=== PATIENT | female | born 1965 | race American Indian/Alaskan Native ===

== ENCOUNTER 2017-11-30 01:26 | Emergency (ER) | payer MEDICAID ==
[2017-11-30 01:29] VITALS: BMI 43.2
[2017-11-30 01:38] VITALS: RESP 18; TEMP 97.7
[2017-11-30] MEDS ORDERED: Metoprolol 1 mg/ml Inj IVP STA ×2 (01:42→02:46)
--- NOTE | 2017-11-30 01:51 | ED PDOC ---
Arrival/HPI - General Chief Complaint: GI Problem Time Seen by Provider: 11/30/17 01:33 Historian: Patient - History of Present Illness Narrative History of Present Illness (Text): 11/30/17 01:50 A 52 year old female, whose past medical history includes hypertension normally takes Lisinopril, was brought in by EMS to the emergency department for nausea, vomiting and high blood pressure. Patient reports nosebleed when she woke up this morning. Patient saw PMD and was prescribed Norvasc for high blood pressure , at 20:00 yesterday, reports she hasn't taken medication yet. Reports nausea and vomiting and elevated blood pressure at home, reported to the emergency department for further evaluation. Patient denies any other complaints at this time. Symptom Onset: Sudden Symptom Course: Unchanged Activities at Onset: Rest Context: Home Past Medical History - Provider Review Nursing Documentation Reviewed: Yes - Infectious Disease Hx of Infectious Diseases: None - Tetanus Immunization Tetanus Immunization: Unknown - Cardiac Hx Hypertension: Yes - Psychiatric Hx Anxiety: Yes Hx Depression: No Hx Emotional Abuse: No Hx Physical Abuse: No Hx Substance Use: No - Suicidal Assessment Feels Threatened In Home Enviroment: No Family/Social History - Physician Review Nursing Documentation Reviewed: Yes Family/Social History: No Known Family HX Smoking Status: Heavy Smoker > 10 Cigarettes Daily Hx Alcohol Use: No Hx Substance Use: No Allergies/Home Meds Allergies/Adverse Reactions: Allergies No Known Allergies Allergy (Verified 12/29/15 11:40) Home Medications: Home Meds Medication Instructions Recorded Confirmed Lisinopril [Zestril] 10 mg PO DAILY 12/29/15 11/30/17 Review of Systems - Physician Review All systems were reviewed & negative as marked: Yes - Review of Systems ENT: Epistaxis Gastrointestinal: Nausea, Vomiting Physical Exam Vital Signs Reviewed: Yes Vital Signs Temp Pulse Resp BP Pulse Ox 11/30/17 03:09 65 18 145/93 H 100 11/30/17 02:58 68 157/94 H 11/30/17 02:07 78 158/102 H 11/30/17 01:35 97.7 F 78 18 152/64 H 99 Temperature: Afebrile Blood Pressure: Hypertensive Pulse: Regular Respiratory Rate: Normal Appearance: Positive for: Well-Appearing, Non-Toxic, Comfortable Pain Distress: None Mental Status: Positive for: Alert and Oriented X 3 - Systems Exam Head: Present: Atraumatic, Normocephalic Pupils: Present: PERRL Extroacular Muscles: Present: EOMI Conjunctiva: Present: Normal Mouth: Present: Moist Mucous Membranes Neck: Present: Normal Range of Motion Respiratory/Chest: Present: Clear to Auscultation, Good Air Exchange. No: Respiratory Distress, Accessory Muscle Use Cardiovascular: Present: Regular Rate and Rhythm, Normal S1, S2. No: Murmurs Abdomen: Present: Normal Bowel Sounds. No: Tenderness, Distention, Peritoneal Signs Back: Present: Normal Inspection Upper Extremity: Present: Normal Inspection. No: Cyanosis, Edema Lower Extremity: Present: Normal Inspection. No: Edema Neurological: Present: GCS=15, CN II-XII Intact, Speech Normal Skin: Present: Warm, Dry, Normal Color. No: Rashes Psychiatric: Present: Alert, Oriented x 3, Normal Insight, Normal Concentration Medical Decision Making ED Course and Treatment: 11/30/17 01:48 Impression: A 52 year old female with nausea, vomiting, and high blood pressure. Plan: -- CT head -- chest xray -- labs -- Urinalysis -- Lopressor, Zofran -- Reassess and disposition Progress Notes: 11/30/17 02:40 EKG: Ordered, reviewed, and independently interpreted the EKG. Rate : 63 BPM Rhythm : NSR Interpretation : Normal intervals, normal axis 11/30/17 02:42 Chest xray: No active disease, as read by me. CT Head Without Intravenous Contrast FINDINGS: Brain: No intracranial hemorrhage. No definite mass. No definite edema. Ventricles: No hydrocephalus. Bones/joints: No acute fracture. Soft tissues: Unremarkable. Sinuses: No acute sinusitis. Mastoid air cells: No mastoid effusion. Orbits: Unremarkable as visualized. IMPRESSION: 1. No definite acute intracranial abnormality. Dictated and Authenticated by: Ronny Palma MD 11/30/2017 2:48 AM Eastern Time ([place] & [place]) 11/30/17 03:15 On re-evaluation, patient feels better and is in no acute distress. I have discussed the results and plan with the patient, who expresses understanding. Patient in agreement with plan to be discharged home. Patient is stable for discharge. Patient was instructed to follow up with physician or return if symptoms worsen or new concerning symptoms arise. - Lab Interpretations Lab Results: 11/30/17 01:46 02/06/18 01:46 Lab Results 11/30/17 01:46: Sodium 141, Potassium 3.7, Chloride 105, Carbon Dioxide 25, Anion Gap 14, BUN 9, Creatinine 0.8, Est GFR ( Amer) > 60, Est GFR (Non- Af Amer) > 60, Random Glucose 105, Calcium 9.1, Total Bilirubin 0.3, AST 24, ALT 22, Alkaline Phosphatase 60, Lactate Dehydrogenase 699, Total Creatine Kinase 225, Troponin I < 0.01, Total Protein 7.9, Albumin 4.1, Globulin 3.8, Albumin/Globulin Ratio 1.1, Lipase 116 11/30/17 01:46: PT 12.9 H, INR 1.13 H 11/30/17 01:46: WBC 10.1 D, RBC 4.45, Hgb 11.4 L, Hct 33.9 L, MCV 76.2 L, MCH 25.6, MCHC 33.6, RDW 15.4 H, Plt Count 285, MPV 10.4, Gran % 76.5 H, Lymph % ( Auto) 17.1 L, [place] % (Auto) 5.6, Eos % (Auto) 0.6 L, Baso % (Auto) 0.2, Gran # 7.71 H, Lymph # (Auto) 1.7, [place] # (Auto) 0.6, Eos # (Auto) 0.1, Baso # (Auto) 0.02 11/30/17 01:42: Urine Color Yellow, Urine Appearance Slight-cloudy, Urine pH 7.0 , Ur Specific [place] 1.020, Urine Protein 30 H, Urine Glucose (UA) Negative, Urine Ketones Negative, Urine Blood Trace-intact H, Urine Nitrate Negative, Urine Bilirubin Negative, Urine Urobilinogen 0.2, Ur Leukocyte Esterase Negative , Urine RBC 2 - 5, Urine WBC 2 - 5, Ur Epithelial Cells 4 - 5, Amorphous Sediment Moderate I have reviewed the lab results: Yes - RAD Interpretation Radiology Orders: 11/30/17 01:42 HEAD W/O CONTRAST [CT] Stat CHEST TWO VIEWS (PA/LAT) [RAD] Stat - Medication Orders Current Medication Orders: Discontinued Medications Metoprolol Tartrate (Lopressor) 5 mg IVP STAT STA Stop: 11/30/17 01:43 Last Admin: 11/30/17 02:07 Dose: 5 mg IVP Administration Document 11/30/17 02:07 AD (Rec: 11/30/17 02:07 AD [id number]) Charges for Administration # of IVP Administrations 1 MAR Pulse and Blood Pressure Document 11/30/17 02:07 AD (Rec: 11/30/17 02:07 AD [id number]) Pulse Pulse Rate (60-90) 78 Blood Pressure Blood Pressure (100/60-150/90) 158/102 Metoprolol Tartrate (Lopressor) 5 mg IVP STAT STA Stop: 11/30/17 02:47 Last Admin: 11/30/17 02:58 Dose: 5 mg IVP Administration Document 11/30/17 02:58 AD (Rec: 11/30/17 02:59 AD [id number]) Charges for Administration # of IVP Administrations 1 MAR Pulse and Blood Pressure Document 11/30/17 02:58 AD (Rec: 11/30/17 02:59 AD [id number]) Pulse Pulse Rate (60-90) 68 Blood Pressure Blood Pressure (100/60-150/90) 157/94 Ondansetron HCl (Zofran Inj) 4 mg IVP STAT STA Stop: 11/30/17 01:43 Last Admin: 11/30/17 02:08 Dose: 4 mg IVP Administration Document 11/30/17 02:08 AD (Rec: 11/30/17 02:08 AD [id number]) Charges for Administration # of IVP Administrations 1 - Scribe Statement The provider has reviewed the documentation as recorded by the Roman Gutiérrez Provider Scribe Attestation: All medical record entries made by the Scribvincent were at my direction and personally dictated by me. I have reviewed the chart and agree that the record accurately reflects my personal performance of the history, physical exam, medical decision making, and the department course for this patient. I have also personally directed, reviewed, and agree with the discharge instructions and disposition. Disposition/Present on Arrival - Present on Arrival Any Indicators Present on Arrival: No History of DVT/PE: No History of Uncontrolled Diabetes: No Urinary Catheter: No History of Decub. Ulcer: No History Surgical Site Infection Following: None - Disposition Have Diagnosis and Disposition been Completed?: Yes Diagnosis: Uncontrolled hypertension, History of epistaxis, Nausea Disposition: HOME/ ROUTINE Disposition Time: 03:11 Patient Plan: Discharge Patient Problems: Current Active Problems Problem Status Onset Uncontrolled hypertension Acute History of epistaxis Acute Nausea Acute Condition: GOOD Discharge Instructions (ExitCare): Nosebleed (ED), Hypertension (ED) Additional Instructions: Mrs Dangelo - Sorry that you are having to go through all of this tonight. Start the norvasc tomorrow. Return to us if any problems and see your doctor later this week. [place]- Dr. mG Astorga Forms: [employer] (Maltese)
[2017-11-30 02:05] LABS: URINE BILIRUBIN NEGATIVE (NEGATIVE); URINE BLOOD TRACE-INTACT (NEGATIVE); URINE GLUCOSE (UA) NEGATIVE (NEGATIVE); URINE LEUKOCYTE ESTERASE NEGATIVE Leu/uL (NEGATIVE); URINE NITRATE NEGATIVE (NEGATIVE); URINE PROTEIN 30 mg/dL (<30 mg/dL); URINE UROBILINOGEN 0.2 E.U./dL (<1 E.U./dL)
[2017-11-30 02:06] LABS: BASO # 0.02 K/mm3 (0.0-2.0); BASO % 0.2 % (0.0-3.0); EOS # 0.1 (0.0-0.7); EOS % 0.6 % (1.5-5.0); GRAN # 7.71 (1.4-6.5); GRAN % 76.5 % (50.0-68.0); HEMOGLOBIN 11.4 g/dL (12.0-16.0); LYMPH # 1.7 (1.2-3.4); LYMPH % 17.1 % (22.0-35.0); MEAN CELL VOLUME 76.2 fl (80.0-105.0); MEAN CORPUSCULAR HEMOGLOBIN 25.6 pg (25.0-35.0); MEAN CORPUSCULAR HGB CONC 33.6 g/dl (31.0-37.0); MEAN PLATELET VOLUME 10.4 fl (7.0-11.0); MONO # 0.6 (0.1-0.6); MONO % 5.6 % (1.0-6.0); RBC 4.45 10^6/uL (3.5-6.1); RED CELL DISTRIBUTION WIDTH 15.4 % (11.5-14.5); WHITE BLOOD COUNT 10.1 10^3/ul (4.5-11.0)
[2017-11-30 02:07] LABS: URINE APPEARANCE SLIGHT-CLOUDY (CLEAR); URINE COLOR YELLOW (YELLOW)
[2017-11-30 02:08] LABS: PROTHROMBIN TIME 12.9 SECONDS (9.4-12.5)
[2017-11-30 02:09] LABS: INR 1.13 (0.93-1.08)
[2017-11-30 02:13] LABS: ALB/GLOB RATIO 1.1 (1.1-1.8); ALBUMIN 4.1 g/dL (3.0-4.8); ALT/SGPT 22 U/L (7-56); AST/SGOT 24 U/L (14-36); BLOOD UREA NITROGEN 9 mg/dL (7-21); CALCIUM 9.1 mg/dL (8.4-10.5); GFR AFRICAN-AMERICAN > 60; GFR NON-AFRICAN AMERICAN > 60; LIPASE 116 U/L (23-300)
[2017-11-30 02:15] LABS: URINE AMORPHOUS SEDIMENT MODERATE
[2017-11-30 02:21] LABS: TROPONIN I < 0.01 ng/mL
--- NOTE | 2017-11-30 02:48 | CT ---
EXAM: CT Head Without Intravenous Contrast CLINICAL HISTORY: 52 years old, female; Signs and symptoms; Other: Hypertension; Additional info: Hypertensive urgency TECHNIQUE: Axial computed tomography images of the head/brain without intravenous contrast. All CT scans at this facility use one or more dose reduction techniques, viz.: automated exposure control; ma/kV adjustment per patient size (including targeted exams where dose is matched to indication; i.e. head); or iterative reconstruction technique. Coronal and sagittal reformatted images were created and reviewed. COMPARISON: No relevant prior studies available. FINDINGS: Brain: No intracranial hemorrhage. No definite mass. No definite edema. Ventricles: No hydrocephalus. Bones/joints: No acute fracture. Soft tissues: Unremarkable. Sinuses: No acute sinusitis. Mastoid air cells: No mastoid effusion. Orbits: Unremarkable as visualized. IMPRESSION: 1. No definite acute intracranial abnormality.
[2017-11-30 03:14] VITALS: BP 145/93; PULSE 65; O2SAT 100
--- NOTE | 2017-11-30 08:30 | RAD ---
HISTORY: VOMITING COMPARISON: 12/29/2015 TECHNIQUE: Chest PA and lateral FINDINGS: LUNGS: No active pulmonary disease. PLEURA: No significant pleural effusion identified. No pneumothorax apparent. CARDIOVASCULAR: Normal. OSSEOUS STRUCTURES: No significant abnormalities. VISUALIZED UPPER ABDOMEN: Normal. OTHER FINDINGS: None. IMPRESSION: No active disease.
--- NOTE | 2017-11-30 12:27 | CARD ---
APPROVED REPORT EKG Measurement Heart [id number] <Conclusion> Normal sinus rhythm Nonspecific T wave abnormality Abnormal ECG
== END 2017-11-30 03:20 | disposition home or self-care (01) ==
LOC: ED 01:26
DX: I10 Essential (primary) hypertension (principal); R04.0 Epistaxis; R11.0 Nausea; F17.210 Nicotine dependence, cigarettes, uncomplicated
CPT/HCPCS: 70450; 71046; 80053; 81001; 82550; 83615; 83690; 84484; 85025; 85610; 93005; 96374; 96375; 96376; 99284; J2405

== ENCOUNTER 2018-04-22 16:46 | Emergency (ER) | payer MEDICAID ==
[2018-04-22 17:10] VITALS: RESP 18; TEMP 99.1; BMI 43.0
--- NOTE | 2018-04-22 17:33 | ED PDOC ---
Arrival/HPI - General Time Seen by Provider: 04/22/18 16:53 Historian: Patient - History of Present Illness Narrative History of Present Illness (Text): 04/22/18 17:30 52 year old female, whose PMH includes hypertension, who presents to the emergency department complaining of sore throat since 2 weeks. Patient is also complaining of left ear pain with dry cough and notes she has not seen her PMD for these symptoms. Patient denies fever, chest pain, shortness of breath, nausea, vomiting, diarrhea, abdominal pain, or other complaints. She also declines getting a Chest X-ray. Time/Duration: > week Symptom Onset: Gradual Symptom Course: Unchanged Context: Home Past Medical History - Provider Review Nursing Documentation Reviewed: Yes - Infectious Disease Hx of Infectious Diseases: None - Tetanus Immunization Tetanus Immunization: Unknown - Cardiac Hx Hypertension: Yes - Psychiatric Hx Anxiety: Yes Hx Depression: No Hx Emotional Abuse: No Hx Physical Abuse: No Hx Substance Use: No - Suicidal Assessment Feels Threatened In Home Enviroment: No Family/Social History - Physician Review Nursing Documentation Reviewed: Yes Family/Social History: Unknown Family HX Smoking Status: Heavy Smoker > 10 Cigarettes Daily Hx Alcohol Use: No Hx Substance Use: No Allergies/Home Meds Allergies/Adverse Reactions: Allergies No Known Allergies Allergy (Verified 12/29/15 11:40) Home Medications: Home Meds Medication Instructions Recorded Confirmed Lisinopril [Zestril] 10 mg PO DAILY 12/29/15 11/30/17 Review of Systems - Review of Systems Constitutional: absent: Fevers ENT: Sore Throat, Other (left ear pain ) Respiratory: Cough. absent: SOB Cardiovascular: absent: Chest Pain Gastrointestinal: absent: Abdominal Pain, Vomiting Genitourinary Female: absent: Dysuria Musculoskeletal: absent: Back Pain Skin: absent: Rash Neurological: absent: Headache Endocrine: absent: Diaphoresis Psychiatric: absent: Anxiety Physical Exam Vital Signs Reviewed: Yes Vital Signs Temp Pulse Resp BP Pulse Ox 04/22/18 18:07 84 18 137/78 98 04/22/18 17:10 99.1 F 90 18 153/98 H 97 Temperature: Afebrile Blood Pressure: Hypertensive Pulse: Regular Respiratory Rate: Normal Appearance: Positive for: Well-Appearing, Non-Toxic, Comfortable Pain Distress: None Mental Status: Positive for: Alert and Oriented X 3 - Systems Exam Head: Present: Atraumatic, Normocephalic Pupils: Present: PERRL Extroacular Muscles: Present: EOMI Conjunctiva: Present: Normal Ears: Present: Erythema (left TM ). No: NORMAL TM Mouth: Present: Moist Mucous Membranes Pharnyx: No: ERYTHEMA, EXUDATE, TONSILS ENLARGED, Peritonsilar Swelling Neck: Present: Normal Range of Motion. No: Lymphadenopathy Respiratory/Chest: Present: Clear to Auscultation, Good Air Exchange. No: Respiratory Distress, Accessory Muscle Use, Wheezes, Decreased Breath Sounds, Rales, Retracting, Rhonchi Cardiovascular: Present: Regular Rate and Rhythm, Normal S1, S2. No: Murmurs Abdomen: Present: Normal Bowel Sounds. No: Tenderness, Distention, Peritoneal Signs, Rebound, Guarding Neurological: Present: GCS=15, CN II-XII Intact, Speech Normal Skin: Present: Warm, Dry, Normal Color. No: Rashes Psychiatric: Present: Alert, Oriented x 3, Normal Insight, Normal Concentration Medical Decision Making ED Course and Treatment: 04/22/18 Impression: 52 year old female with left ear erythema complaining of left ear pain, dry cough, and sore throat since 2 weeks. Plan: -- Zithromax -- Reassess and disposition Progress Notes: 04/23/18 07:59 suspec allergies vs om vs viral syndrome. pt advised to f/u with ENT. refuses cxr in er, airway patent, speaking full sentences. - Medication Orders Current Medication Orders: Discontinued Medications Azithromycin (Zithromax) 500 mg PO STAT STA PRN Reason: Protocol Stop: 04/22/18 17:30 Last Admin: 04/22/18 18:00 Dose: 500 mg - Scribe Statement The provider has reviewed the documentation as recorded by the Roman Medina Provider Scribe Attestation: All medical record entries made by the Roman were at my direction and personally dictated by me. I have reviewed the chart and agree that the record accurately reflects my personal performance of the history, physical exam, medical decision making, and the department course for this patient. I have also personally directed, reviewed, and agree with the discharge instructions and disposition. Disposition/Present on Arrival - Present on Arrival Any Indicators Present on Arrival: No History of DVT/PE: No History of Uncontrolled Diabetes: No Urinary Catheter: No History Surgical Site Infection Following: None - Disposition Have Diagnosis and Disposition been Completed?: Yes Diagnosis: Otitis media, Sore throat Disposition: HOME/ ROUTINE Disposition Time: 06:00 Condition: STABLE Discharge Instructions (ExitCare): Ear Infections (Otitis Media), Sore Throat, Adult (DC) Additional Instructions: you are declining xray. you should follow up with pmd and specialist. you solo need further workup as an outpatient. return to er with worsening symptoms or concerns. Prescriptions: Azithromycin [Zithromax] 250 mg PO DAILY #4 tab Loratadine [Claritin] 10 mg PO DAILY PRN #10 tab PRN Reason: Allergy Symptoms Referrals: [facility] [Outside] - [place] up with primary [facility] [place] - Follow up with primary Cyndi Rodriguez DO [Primary Care Provider] - Follow up with primary Abhinav Larios DO [Doctor Osteopathy] - Follow up with primary
[2018-04-22 18:09] VITALS: BP 137/78; PULSE 84; O2SAT 98
== END 2018-04-22 18:07 | disposition home or self-care (01) ==
LOC: ED 16:46
DX: J02.9 Acute pharyngitis, unspecified (principal); H66.92 Otitis media, unspecified, left ear; F17.210 Nicotine dependence, cigarettes, uncomplicated

== ENCOUNTER 2018-08-11 16:10 | Emergency (ER) | payer MEDICAID ==
[2018-08-11 16:22] VITALS: BMI 42.7
[2018-08-11 16:24] VITALS: RESP 18
--- NOTE | 2018-08-11 17:44 | ED PDOC ---
Arrival/HPI - General Chief Complaint: Cough, Cold, Congestion Time Seen by Provider: 08/11/18 16:56 Historian: Patient - History of Present Illness Narrative History of Present Illness (Text): 08/11/18 17:41 53yr old female with hx of HTN presents today with blood tinged mucus today this morning. pt states she was clearing her throat and noticed a large green glob of mucus. pt states she then cleared her throat again and noticed blood streaking along clear mucus. pt denies cough. denies cp or sob. denies nosebleeding. denies fever/chills. 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 no dizziness or weakness. denies shortness of breath or chest pain. Pt states she has not noticed any blood since the mucus this morning. no other complaints. Past Medical History - Provider Review Nursing Documentation Reviewed: Yes - Travel History Have you recently traveled outside [place] w/in the past 3 mons?: No - Infectious Disease Hx of Infectious Diseases: None - Tetanus Immunization Tetanus Immunization: Unknown - Cardiac Hx Hypertension: Yes - Psychiatric Hx Anxiety: Yes Hx Depression: Yes Hx Emotional Abuse: No Hx Physical Abuse: No Hx Substance Use: No - Anesthesia Hx Anesthesia: No Hx Anesthesia Reactions: No Hx Malignant Hyperthermia: No - Suicidal Assessment Feels Threatened In Home Enviroment: No Family/Social History - Physician Review Nursing Documentation Reviewed: Yes Family/Social History: Unknown Family HX Smoking Status: Heavy Smoker > 10 Cigarettes Daily Hx Alcohol Use: No Hx Substance Use: No Allergies/Home Meds Allergies/Adverse Reactions: Allergies No Known Allergies Allergy (Verified 12/29/15 11:40) Home Medications: Home Meds Medication Instructions Recorded Confirmed Losartan [Cozaar] 1 tab PO DAILY 08/11/18 08/11/18 amLODIPine [Norvasc] 1 tab PO DAILY 08/11/18 08/11/18 Review of Systems - Review of Systems Constitutional: absent: Fatigue, Fevers ENT: absent: Sore Throat, Rhinorrhea, Epistaxis, Sinus Congestion Respiratory: absent: SOB, Cough Cardiovascular: absent: Chest Pain, Palpitations Gastrointestinal: absent: Abdominal Pain, Constipation, Diarrhea, Nausea, Vomiting Genitourinary Female: absent: Dysuria, Frequency, Hematuria Musculoskeletal: absent: Arthralgias, Back Pain, Neck Pain Skin: absent: Rash, Pruritis Neurological: absent: Headache, Dizziness Psychiatric: absent: Anxiety, Depression, Suicidal Ideation Physical Exam Vital Signs Reviewed: Yes Vital Signs Temp Pulse Resp BP Pulse Ox 08/11/18 16:23 98.5 F 75 18 164/104 H 98 Temperature: Afebrile Blood Pressure: Hypertensive Pulse: Regular Respiratory Rate: Normal Appearance: Positive for: Well-Appearing, Non-Toxic, Comfortable Pain Distress: None Mental Status: Positive for: Alert and Oriented X 3 - Systems Exam Head: Present: Atraumatic Pupils: Present: PERRL Extroacular Muscles: Present: EOMI Conjunctiva: Present: Normal Ears: Present: Normal, NORMAL TM, Normal Canal. No: Erythema Mouth: Present: Moist Mucous Membranes, Normal Lips, Normal Tounge, Normal Teeth. No: Drooling, Trismus Pharnyx: Present: Other (NO BLOOD ). No: ERYTHEMA, EXUDATE, TONSILS ENLARGED, Peritonsilar Swelling, Uvular Deviation, Muffled/Hoarse Voice, Strider, Soft Palate/Uvular Edema Nose (External): Present: Atraumatic Nose (Internal): Present: No Active Bleeding, Clear Mucous, Other (nasal septum perforation noted. no active bleeding. ). No: Normal Inspection, Edematous, Septal Hematoma Neck: Present: Normal Range of Motion, Trachea Midline Respiratory/Chest: Present: Clear to Auscultation, Good Air Exchange, Tender to Palpation. No: Respiratory Distress, Accessory Muscle Use, Wheezes, Decreased Breath Sounds, Retracting, Rhonchi, Tachypneic Cardiovascular: Present: Regular Rate and Rhythm, Normal S1, S2. No: Murmurs Abdomen: No: Tenderness Upper Extremity: Present: Normal ROM Lower Extremity: Present: Normal ROM Neurological: Present: GCS=15, Speech Normal Skin: Present: Warm, Dry, Normal Color Psychiatric: Present: Alert, Oriented x 3 Medical Decision Making ED Course and Treatment: 08/11/18 17:45 53yr old female presenting with concerns for blood streaking in mucus. no cough. slightly hypertensive. no distress. No signs of active bleeding. cbc; wnl cmp wnl pt/INR cxr; FINDINGS: LINES AND TUBES: None. LUNG AND PLEURA: The lungs are well inflated and clear. No pleural effusion or pneumothorax. HEART AND MEDIASTINUM: There is mild cardiomegaly. No aortic atherosclerotic calcification present. The hilar and mediastinal contours are within normal limits. SKELETAL STRUCTURES: The bony structures are within normal limits for the patient's age. VISUALIZED UPPER ABDOMEN: Normal. OTHER FINDINGS: None. IMPRESSION: No acute findings. ekg; NSR at 70 b/m no st elevations. normal axis, normal intervals. qtc 444 CT chest; There is no evidence of pleural or parenchymal-based mass. There is no evidence of hilar or mediastinal lymphadenopathy. The heart is moderately enlarged. Moderate sized pericardial effusion is present. There is minimal upper lobe predominant paraseptal emphysema seen. Trace bilateral pleural effusions are noted. There are mild increased peripheral interstitial lung markings suggesting early pulmonary fibrosis. Small hiatal hernia is seen. The visualized portions of the liver are of uniform attenuation without mass or defect. There is no intra or extrahepatic biliary ductal dilatation. The spleen is unremarkable. The visualized pancreas is of normal contour and attenuation characteristics. There is no evidence of adrenal mass. The visualized portions of the kidneys present no abnormalities. The bony structures are free of lytic or blastic lesions. IMPRESSION: 1. The heart is moderately enlarged. 2. Moderate sized pericardial effusion. 3. Minimal upper lobe predominant paraseptal emphysema. 4. Trace bilateral pleural effusions. 5. Early pulmonary fibrosis. 6. Small hiatal hernia. 08/11/18 22:45 pt offered admission to the hospital; for pericardial effusion, moderate. pt was advised to remain in the hospital for cardiology evaluation due to moderate amount of fluid around the heart. pt was advised of risk of , heart attack, worsening of symptoms. Patient has been advised to not leave the emergency room but has decided to go AGAINST MEDICAL ADVICE. The patient possesses capacity to make decisions and has voiced understanding to all my warnings of potential worsening of the condition for which medical care was sought. I have discussed all known and potential risks and consequences to the patient leaving AGAINST MEDICAL ADVICE. Patient is leaving against medical advise. AMA form signed. witness by GABI Daly. Impression; blood in mucus, pericardial effusion, AMA Return if you wish to continue your care follow up with the hospital manager ALBA follow up with the accounts receivable bookkeeper within the next 2 days. return immediately if symptoms worsen,persist or if new symptoms develop. - RAD Interpretation Radiology Orders: 08/11/18 17:10 CHEST TWO VIEWS (PA/LAT) [RAD] Stat Disposition/Present on Arrival - Present on Arrival Any Indicators Present on Arrival: No History of DVT/PE: No History of Uncontrolled Diabetes: No Urinary Catheter: No History of Decub. Ulcer: No History Surgical Site Infection Following: None - Disposition Have Diagnosis and Disposition been Completed?: Yes Diagnosis: Pericardial effusion, Blood-tinged sputum Disposition: AGAINST MEDICAL ADVICE Disposition Time: 19:22 Patient Plan: Other (AMA) Condition: GOOD Additional Instructions: Return if you wish to continue your care follow up with the hospital manager ALBA follow up with the accounts receivable bookkeeper within the next 2 days. return immediately if symptoms worsen,persist or if new symptoms develop. Referrals: Darrick Portillo MD [Staff Provider] - Follow up with primary Michelle Gallagher MD [Staff Provider] - Follow up with primary Sveta Banerjee MD [Medical Doctor] - Follow up with primary [facility] [Outside] - Follow up with primary Forms: [facility] [employer] (Romanian), WORK NOTE
[2018-08-11 18:00] LABS: URINE BILIRUBIN NEGATIVE (NEGATIVE); URINE BLOOD LARGE (NEGATIVE); URINE GLUCOSE (UA) NEGATIVE (NEGATIVE); URINE LEUKOCYTE ESTERASE NEGATIVE Leu/uL (NEGATIVE); URINE PROTEIN NEGATIVE mg/dL (<30 mg/dL); URINE UROBILINOGEN 0.2 E.U./dL (<1 E.U./dL)
[2018-08-11 18:01] LABS: URINE APPEARANCE CLEAR (CLEAR); URINE COLOR YELLOW (YELLOW)
[2018-08-11 18:06] LABS: BASO # 0.02 K/mm3 (0.0-2.0); BASO % 0.2 % (0.0-3.0); EOS # 0.1 (0.0-0.7); EOS % 1.5 % (1.5-5.0); GRAN # 4.65 (1.4-6.5); GRAN % 56.7 % (50.0-68.0); HEMOGLOBIN 11.7 g/dL (12.0-16.0); LYMPH % 36.8 % (22.0-35.0); MEAN CELL VOLUME 80.9 fl (80.0-105.0); MEAN CORPUSCULAR HEMOGLOBIN 25.7 pg (25.0-35.0); MEAN CORPUSCULAR HGB CONC 31.7 g/dl (31.0-37.0); MEAN PLATELET VOLUME 9.7 fl (7.0-11.0); MONO # 0.4 (0.1-0.6); MONO % 4.8 % (1.0-6.0); RBC 4.56 10^6/uL (3.5-6.1); WHITE BLOOD COUNT 8.2 10^3/ul (4.5-11.0)
[2018-08-11 18:07] LABS: URINE RBC TNTC /hpf (0-2)
[2018-08-11 18:10] LABS: INR 1.09; PARTIAL THROMBOPLASTIN TIME 32.3 Seconds (25.1-36.5); PROTHROMBIN TIME 12.5 SECONDS (9.4-12.5)
[2018-08-11 18:13] LABS: ALB/GLOB RATIO 1.1 (1.1-1.8); ALBUMIN 4.1 g/dL (3.0-4.8); ALT/SGPT 23 U/L (7-56); AST/SGOT 32 U/L (14-36); BLOOD UREA NITROGEN 10 mg/dL (7-21); GFR NON-AFRICAN AMERICAN > 60
[2018-08-11 18:41] LABS: BARBITURATES, UR NEGATIVE (NEGATIVE); BENZODIAZEPINES, UR NEGATIVE (NEGATIVE); OPIATES, UR NEGATIVE (NEGATIVE); PHENCYCLIDINE, UR NEGATIVE (NEGATIVE)
--- NOTE | 2018-08-11 18:41 | RAD ---
HISTORY: Hemoptysis COMPARISON: 11/30/2017. TECHNIQUE: Chest PA and lateral FINDINGS: LINES AND TUBES: None. LUNG AND PLEURA: The lungs are well inflated and clear. No pleural effusion or pneumothorax. HEART AND MEDIASTINUM: There is mild cardiomegaly. No aortic atherosclerotic calcification present. The hilar and mediastinal contours are within normal limits. SKELETAL STRUCTURES: The bony structures are within normal limits for the patient's age. VISUALIZED UPPER ABDOMEN: Normal. OTHER FINDINGS: None. IMPRESSION: No acute findings.
--- NOTE | 2018-08-11 20:46 | CARD ---
APPROVED REPORT Date of service: 08/11/2018 EKG Measurement Heart [id number] <Conclusion> Normal sinus rhythm Nonspecific T wave changes Abnormal ECG
[2018-08-11 22:12] LABS: B-TYPE NATRIURETIC PEPTIDE 38.8 pg/mL (0-450); TROPONIN I < 0.01 ng/mL
[2018-08-11 23:15] VITALS: BP 142/72; PULSE 64; TEMP 98.6; O2SAT 99
--- NOTE | 2018-08-12 12:12 | CT ---
Date of service: 08/11/2018 CT chest without IV contrast Indication: smoker, cough/ episode of blood streaked mucus Technique: Contiguous axial images were obtained through the chest without intravenous contrast enhancement. Sagittal and coronal reconstructions were generated and reviewed. This CT exam was performed using 1 or more of the following dose reduction techniques: Automated exposure control, adjustment of the MAA and/or kV according to patient size, and/or use of iterative reconstruction technique. Radiation dose (DLP): 815.21 MGy-cm. Comparison: Chest x-ray performed 08/11/18, CTA chest performed 12/29/15 Findings: Visualized portions of the inferior thyroid gland appear heterogeneous. The unenhanced mediastinal and hilar vascular structures appear grossly unremarkable. Borderline cardiomegaly. Small pericardial effusion. Emphysematous changes. Minimal basilar atelectasis. No focal consolidation. Trace effusions. No pneumothorax. No suspicious pulmonary nodules measuring greater than 5 mm. Small to moderate hiatal hernia. Limited visualization of the noncontrast upper abdomen: Punctate left renal calculus. Osseous demineralization. Degenerative changes of the spine. Fusion of the anterior T11-T12 and T9-T10 vertebral bodies. Impression: Appearance of the included portions inferior thyroid gland. Borderline cardiomegaly. Small pericardial effusion. Emphysematous changes. Minimal bibasilar atelectasis. Trace effusions. Punctate left renal calculus. No hydronephrosis. Small to moderate hiatal hernia. Osseous demineralization. Degenerative changes. Osseous fusion of the anterior T9-T10 and T11-T12 vertebral bodies. Preliminary impression was provided by [facility] [facility].
== END 2018-08-11 23:13 | disposition left against medical advice (07) ==
LOC: ED 16:10
DX: I31.3 Pericardial effusion (noninflammatory) (principal); R04.2 Hemoptysis; F17.210 Nicotine dependence, cigarettes, uncomplicated; I10 Essential (primary) hypertension

== ENCOUNTER 2018-08-12 15:37 | Inpatient (IN) | payer MEDICAID ==
--- NOTE | 2018-08-12 16:01 | ED PDOC ---
Arrival/HPI - General Time Seen by Provider: 08/12/18 15:44 Historian: Patient - History of Present Illness Narrative History of Present Illness (Text): 08/12/18 16:03 63yo female with pmhx of hypertension and ex cocaine user who present with complaint of SOB and mild nonproductive cough. Patient was seen here for same complaint and signed out AMA against admission. States she saw her PMD today for same SOB and was advised to return back to the ED. She denies chest pain, diaphoresis, hemoptysis, fever, chills, LE edema, calf pain, nausea, abdominal pain, dizziness, any other complaint. Past Medical History - Provider Review Nursing Documentation Reviewed: Yes - Infectious Disease Hx of Infectious Diseases: None - Tetanus Immunization Tetanus Immunization: Unknown - Cardiac Hx Hypertension: Yes - Psychiatric Hx Anxiety: Yes Hx Depression: Yes Hx Emotional Abuse: No Hx Physical Abuse: No Hx Substance Use: No - Anesthesia Hx Anesthesia: No Hx Anesthesia Reactions: No Hx Malignant Hyperthermia: No - Suicidal Assessment Feels Threatened In Home Enviroment: No Family/Social History - Physician Review Nursing Documentation Reviewed: Yes Family/Social History: Unknown Family HX Smoking Status: Heavy Smoker > 10 Cigarettes Daily Hx Alcohol Use: No Hx Substance Use: No Allergies/Home Meds Allergies/Adverse Reactions: Allergies No Known Allergies Allergy (Verified 08/12/18 16:05) Home Medications: Home Meds Medication Instructions Recorded Confirmed Losartan [Cozaar] 1 tab PO DAILY 08/11/18 08/12/18 amLODIPine [Norvasc] 1 tab PO DAILY 08/11/18 08/12/18 Review of Systems - Physician Review All systems were reviewed & negative as marked: Yes - Review of Systems Constitutional: Normal Eyes: Normal ENT: Normal Respiratory: SOB, Cough. absent: Sputum, Wheezing Cardiovascular: Normal Gastrointestinal: Normal Genitourinary Female: Normal Musculoskeletal: Normal Skin: Normal Neurological: Normal Endocrine: Normal Hemo/Lymphatic: Normal Psychiatric: Normal Physical Exam Vital Signs Reviewed: Yes Temperature: Afebrile Blood Pressure: Normal Pulse: Regular Respiratory Rate: Normal Appearance: Positive for: Well-Appearing, Non-Toxic, Comfortable Pain Distress: None Mental Status: Positive for: Alert and Oriented X 3 - Systems Exam Head: Present: Atraumatic, Normocephalic Pupils: Present: PERRL Extroacular Muscles: Present: EOMI Conjunctiva: Present: Normal Mouth: Present: Moist Mucous Membranes Neck: Present: Normal Range of Motion Respiratory/Chest: Present: Clear to Auscultation, Good Air Exchange. No: Respiratory Distress, Accessory Muscle Use, Wheezes, Decreased Breath Sounds, Rales, Retracting, Rhonchi Cardiovascular: Present: Regular Rate and Rhythm, Normal S1, S2. No: Murmurs Abdomen: No: Tenderness, Distention, Peritoneal Signs Back: Present: Normal Inspection Upper Extremity: Present: Normal Inspection. No: Cyanosis, Edema Lower Extremity: Present: Normal Inspection. No: Edema Neurological: Present: GCS=15, CN II-XII Intact, Speech Normal Skin: Present: Warm, Dry, Normal Color. No: Rashes Psychiatric: Present: Alert, Oriented x 3, Normal Insight, Normal Concentration Medical Decision Making ED Course and Treatment: 08/12/18 16:06 53yo female who present with complaint of SOB and nonproductive cough. Patient was seen here yesterday for same complaint . Her record was reviewed and she had normal CBC and CMP Chest CT show moderate pericardial effusion. She was offered admission but declined. Pt states she will stay in ED today if offered. Secondary to the findings in the CT and her persistent symptom, she needs admission for further cardiovascular evaluation. Case was DW Dr. Welsh and he accepted the pt for admission Labs EKG ordered Plan was DW the pt and she agreed. 08/12/18 16:13 EKG NSR @ 80bpm NSTEMI Disposition/Present on Arrival - Present on Arrival Any Indicators Present on Arrival: No History of DVT/PE: No History of Uncontrolled Diabetes: No Urinary Catheter: No History of Decub. Ulcer: No History Surgical Site Infection Following: None - Disposition Have Diagnosis and Disposition been Completed?: Yes Diagnosis: Pleural effusion, SOB (shortness of breath) Disposition: HOSPITALIZED Disposition Time: 16:00 Patient Plan: Admission Patient Problems: Current Active Problems Problem Status Onset Pleural effusion Acute SOB (shortness of breath) Acute Condition: STABLE
[2018-08-12 17:37] LABS: ALB/GLOB RATIO 1.1 (1.1-1.8); ALBUMIN 3.9 g/dL (3.0-4.8); ALT/SGPT 12 U/L (7-56); AST/SGOT 19 U/L (14-36); BLOOD UREA NITROGEN 11 mg/dL (7-21); CALCIUM 8.8 mg/dL (8.4-10.5); GFR NON-AFRICAN AMERICAN > 60
[2018-08-12 17:37] LABS: BARBITURATES, UR NEGATIVE (NEGATIVE); BENZODIAZEPINES, UR NEGATIVE (NEGATIVE); OPIATES, UR NEGATIVE (NEGATIVE); PHENCYCLIDINE, UR NEGATIVE (NEGATIVE)
[2018-08-12 17:40] LABS: BASO # 0.03 K/mm3 (0.0-2.0); BASO % 0.4 % (0.0-3.0); EOS # 0.1 (0.0-0.7); GRAN # 4.46 (1.4-6.5); GRAN % 56.4 % (50.0-68.0); HEMOGLOBIN 11.7 g/dL (12.0-16.0); LYMPH # 2.9 (1.2-3.4); LYMPH % 36.8 % (22.0-35.0); MEAN CELL VOLUME 81.3 fl (80.0-105.0); MEAN PLATELET VOLUME 9.8 fl (7.0-11.0); MONO # 0.4 (0.1-0.6); MONO % 5.4 % (1.0-6.0); RBC 4.5 10^6/uL (3.5-6.1); RED CELL DISTRIBUTION WIDTH 16.5 % (11.5-14.5); WHITE BLOOD COUNT 7.9 10^3/ul (4.5-11.0)
[2018-08-12 17:42] LABS: TROPONIN I < 0.01 ng/mL
[2018-08-12 17:43] LABS: INR 1.15; PARTIAL THROMBOPLASTIN TIME 22.5 Seconds (25.1-36.5); PROTHROMBIN TIME 13.1 SECONDS (9.4-12.5)
[2018-08-12] MEDS ORDERED: Albuterol-Ipratrop 3 mg / 0.5 (3 ml) UD IH PRN (18:33)
--- NOTE | 2018-08-12 19:01 | CP.PCM.HP ---
<Rico Peralta - Last Filed: 08/12/18 21:58> History of Present Illness - History of Present Illness History of Present Illness: Rico Peralta PGY1, History and Physical for Dr Welsh Pt is a 53 yo female with a PMH of cocaine use (per chart review), DM, depression, obesity who presents to the ED complaining of blood streaked sputum, cough, SOB, and chest tightness. The blood streaked sputum first began about 4-5 months. Pt reports chest tightness for the past year with exertion. Pt reports SOB with walking, and sometimes during conversations. Pt is fully able to converse during the interview. Pt states that the SOB has gotten progressively worse. Pt is unsure if the cough, SOB, or chest tightness came fist, but they have been going on for the past year. Pt was at the ED yesterday and left AMA. She started coughing up green sputum today and decided to come back. A 12 point ROS was obtained and added to the HPI. PMH: cocaine use, DM, depression, obesity PSH: denies FH:Mother CHF at 44, father unknown medical history, brother with CHF SH: Tobacco 7 cig/day for 20 years, alcohol denies, drugs denies Home meds: flonase, ferous sulfate, B12, xanax, dexepin, visteri, seroquil, lisinopril, norvasc, omeprazole, clonidine, proventil, prednisone, welbutrin Allergies:NKDA PMD: Dr. Rodriguez Present on Admission - Present on Admission Any Indicators Present on Admission: No Review of Systems - Review of Systems Review of Systems: a 12 point ROS was obtained and added to the HPI where appropriate Past Patient History - Infectious Disease Hx of Infectious Diseases: None - Tetanus Immunizations Tetanus Immunization: Unknown - Past Social History Smoking Status: Heavy Smoker > 10 Cigarettes Daily - CARDIAC Hx Hypertension: Yes - PULMONARY Hx Respiratory Disorders: Yes Other/Comment: smoke - NEUROLOGICAL Hx Neurological Disorder: No - HEENT Hx HEENT Problems: Yes Hx Epistaxis: Yes Other/Comment: otitis - RENAL Hx Chronic Kidney Disease: No - ENDOCRINE/METABOLIC Hx Endocrine Disorders: Yes Other/Comment: Borderline DM - HEMATOLOGICAL/ONCOLOGICAL Hx Blood Disorders: No - INTEGUMENTARY Hx Dermatological Problems: No - MUSCULOSKELETAL/RHEUMATOLOGICAL Hx Musculoskeletal Disorders: No - GASTROINTESTINAL Hx Gastrointestinal Disorders: No - GENITOURINARY/GYNECOLOGICAL Hx Genitourinary Disorders: No - PSYCHIATRIC Hx Anxiety: Yes Hx Depression: Yes Hx Emotional Abuse: No Hx Physical Abuse: No Hx Substance Use: No - SURGICAL HISTORY Hx Surgeries: No - ANESTHESIA Hx Anesthesia: No Hx Anesthesia Reactions: No Hx Malignant Hyperthermia: No Meds Allergies/Adverse Reactions: Allergies Allergy/AdvReac Type Severity Reaction Status Date / Time No Known Allergies Allergy Verified 08/12/18 16:05 Physical Exam - Constitutional Appears: No Acute Distress - Head Exam Head Exam: ATRAUMATIC, NORMAL INSPECTION, NORMOCEPHALIC - Eye Exam Eye Exam: EOMI - ENT Exam ENT Exam: Mucous Membranes Moist - Respiratory Exam Respiratory Exam: NORMAL BREATHING PATTERN. absent: Accessory Muscle Use Additional comments: bilateral lung base crackles - Cardiovascular Exam Cardiovascular Exam: RRR, +S1, +S2 - GI/Abdominal Exam GI & Abdominal Exam: Normal Bowel Sounds, Soft. absent: Tenderness - Extremities Exam Extremities exam: Positive for: full ROM, pedal edema, pedal pulses present. Negative for: calf tenderness, tenderness - Neurological Exam Neurological exam: Alert, Oriented x3 - Psychiatric Exam Psychiatric exam: Normal Affect, Normal Mood - Skin Skin Exam: Dry, Warm Results - Vital Signs Recent Vital Signs: Last Vital Signs Temp 99.3 F 08/12/18 16:06 Pulse 81 08/12/18 16:06 Resp 18 08/12/18 18:48 BP 161/100 H 08/12/18 18:48 Pulse Ox 99 08/12/18 18:48 - Labs Result Diagrams: 08/12/18 17:00 08/12/18 17:00 Labs: Laboratory Results - last 24 hr 08/12/18 08/12/18 08/12/18 16:40 17:00 17:00 WBC 7.9 RBC 4.50 Hgb 11.7 L Hct 36.6 MCV 81.3 MCH 26.0 MCHC 32.0 RDW 16.5 H Plt Count 261 MPV 9.8 Gran % 56.4 Lymph % (Auto) 36.8 H Kane % (Auto) 5.4 Eos % (Auto) 1.0 L Baso % (Auto) 0.4 Gran # 4.46 Lymph # (Auto) 2.9 Kane # (Auto) 0.4 Eos # (Auto) 0.1 Baso # (Auto) 0.03 PT 13.1 H INR 1.15 APTT 22.5 L Sodium Potassium Chloride Carbon Dioxide Anion Gap BUN Creatinine Est GFR ( Amer) Est GFR (Non-Af Amer) Random Glucose Calcium Total Bilirubin AST ALT Alkaline Phosphatase Lactate Dehydrogenase Total Creatine Kinase Troponin I Total Protein Albumin Globulin Albumin/Globulin Ratio Urine Opiates Screen Negative Urine Methadone Screen Negative Ur Barbiturates Screen Negative Ur Phencyclidine Scrn Negative Ur Amphetamines Screen Negative U Benzodiazepines Scrn Negative U Oth Cocaine Metabols Negative U Cannabinoids Screen Negative 08/12/18 17:00 WBC RBC Hgb Hct MCV MCH MCHC RDW Plt Count MPV Gran % Lymph % (Auto) Kane % (Auto) Eos % (Auto) Baso % (Auto) Gran # Lymph # (Auto) Kane # (Auto) Eos # (Auto) Baso # (Auto) PT INR APTT Sodium 139 Potassium 4.3 Chloride 109 H Carbon Dioxide 22 Anion Gap 12 BUN 11 Creatinine 0.8 Est GFR ( Amer) > 60 Est GFR (Non-Af Amer) > 60 Random Glucose 90 Calcium 8.8 Total Bilirubin 0.2 AST 19 ALT 12 Alkaline Phosphatase 62 Lactate Dehydrogenase 576 Total Creatine Kinase 178 Troponin I < 0.01 Total Protein 7.5 Albumin 3.9 Globulin 3.7 Albumin/Globulin Ratio 1.1 Urine Opiates Screen Urine Methadone Screen Ur Barbiturates Screen Ur Phencyclidine Scrn Ur Amphetamines Screen U Benzodiazepines Scrn U Oth Cocaine Metabols U Cannabinoids Screen Assessment & Plan - Assessment and Plan (Free Text) Assessment: Pt is a 53 yo female with a PMH of cocaine use (per chart review), DM, depress ion, obesity who presents to the ED complaining of blood streaked sputum, cough, SOB, and chest tightness. Pt was at the ED yesterday and left AMA. She started coughing up green sputum today and decided to come back. Plan: Chronic bronchitis - Levoquin - f/u sputum culture and gram stain - f/u legionella and mycoplasma - duonebs q6 scheduled - duonebs q2 prn - will consult pulm if patient continues to have hemoptysis Pedal Edema, r/o CHF - check lipid panel - IV Lasix 40 stat - IV Lasix 20 BID starting tomorrow - f/u echo - T4/TSH - cardiology consult non insulin dependent DM - A1c - diabetic diet HTN - continue home norvasc - continue home lisinopril Depression - continue home seroquil Patient seen and examined. Assessment and plan discussed with Dr. Blaise Peralta PGY1 - Date & Time Date: 08/12/18 Time: 07:00 <Michelle Welsh - Last Filed: 08/13/18 14:56> Results - Vital Signs Recent Vital Signs: Last Vital Signs Temp 98.5 F 08/13/18 08:31 Pulse 73 08/13/18 09:09 Resp 20 08/13/18 08:31 BP 118/81 08/13/18 09:09 Pulse Ox 95 08/13/18 08:31 - Labs Result Diagrams: 08/13/18 07:00 08/13/18 07:00 Labs: Laboratory Results - last 24 hr 08/12/18 08/12/18 08/12/18 16:40 17:00 17:00 WBC 7.9 RBC 4.50 Hgb 11.7 L Hct 36.6 MCV 81.3 MCH 26.0 MCHC 32.0 RDW 16.5 H Plt Count 261 MPV 9.8 Gran % 56.4 Lymph % (Auto) 36.8 H Kane % (Auto) 5.4 Eos % (Auto) 1.0 L Baso % (Auto) 0.4 Gran # 4.46 Lymph # (Auto) 2.9 Kane # (Auto) 0.4 Eos # (Auto) 0.1 Baso # (Auto) 0.03 PT 13.1 H INR 1.15 APTT 22.5 L Sodium Potassium Chloride Carbon Dioxide Anion Gap BUN Creatinine Est GFR ( Amer) Est GFR (Non-Af Amer) POC Glucose (mg/dL) Random Glucose Calcium Total Bilirubin AST ALT Alkaline Phosphatase Lactate Dehydrogenase Total Creatine Kinase Troponin I Total Protein Albumin Globulin Albumin/Globulin Ratio Triglycerides Cholesterol LDL Cholesterol Direct HDL Cholesterol Thyroxine (T4) TSH 3rd Generation Urine Opiates Screen Negative Urine Methadone Screen Negative Ur Barbiturates Screen Negative Ur Phencyclidine Scrn Negative Ur Amphetamines Screen Negative U Benzodiazepines Scrn Negative U Oth Cocaine Metabols Negative U Cannabinoids Screen Negative 08/12/18 08/12/18 08/12/18 17:00 17:00 17:00 WBC RBC Hgb Hct MCV MCH MCHC RDW Plt Count MPV Gran % Lymph % (Auto) Kane % (Auto) Eos % (Auto) Baso % (Auto) Gran # Lymph # (Auto) Kane # (Auto) Eos # (Auto) Baso # (Auto) PT INR APTT Sodium 139 Potassium 4.3 Chloride 109 H Carbon Dioxide 22 Anion Gap 12 BUN 11 Creatinine 0.8 Est GFR ( Amer) > 60 Est GFR (Non-Af Amer) > 60 POC Glucose (mg/dL) Random Glucose 90 Calcium 8.8 Total Bilirubin 0.2 AST 19 ALT 12 Alkaline Phosphatase 62 Lactate Dehydrogenase 576 Total Creatine Kinase 178 Troponin I < 0.01 Total Protein 7.5 Albumin 3.9 Globulin 3.7 Albumin/Globulin Ratio 1.1 Triglycerides 91 Cholesterol 137 LDL Cholesterol Direct 76 HDL Cholesterol 40 Thyroxine (T4) 10.2 TSH 3rd Generation 1.55 Urine Opiates Screen Urine Methadone Screen Ur Barbiturates Screen Ur Phencyclidine Scrn Ur Amphetamines Screen U Benzodiazepines Scrn U Oth Cocaine Metabols U Cannabinoids Screen 08/13/18 08/13/18 08/13/18 07:00 07:00 08:39 WBC 8.4 RBC 4.51 Hgb 11.5 L Hct 36.1 MCV 80.0 MCH 25.5 MCHC 31.9 RDW 16.0 H Plt Count 287 MPV 9.6 Gran % Lymph % (Auto) Kane % (Auto) Eos % (Auto) Baso % (Auto) Gran # Lymph # (Auto) Kane # (Auto) Eos # (Auto) Baso # (Auto) PT INR APTT Sodium 139 Potassium 3.7 Chloride 106 Carbon Dioxide 24 Anion Gap 12 BUN 11 Creatinine 0.8 Est GFR ( Amer) > 60 Est GFR (Non-Af Amer) > 60 POC Glucose (mg/dL) 114 H Random Glucose 115 H Calcium 8.9 Total Bilirubin 0.5 AST 25 ALT 18 Alkaline Phosphatase 65 Lactate Dehydrogenase Total Creatine Kinase Troponin I Total Protein 7.5 Albumin 3.9 Globulin 3.5 Albumin/Globulin Ratio 1.1 Triglycerides Cholesterol LDL Cholesterol Direct HDL Cholesterol Thyroxine (T4) TSH 3rd Generation Urine Opiates Screen Urine Methadone Screen Ur Barbiturates Screen Ur Phencyclidine Scrn Ur Amphetamines Screen U Benzodiazepines Scrn U Oth Cocaine Metabols U Cannabinoids Screen 08/13/18 11:38 WBC RBC Hgb Hct MCV MCH MCHC RDW Plt Count MPV Gran % Lymph % (Auto) Kane % (Auto) Eos % (Auto) Baso % (Auto) Gran # Lymph # (Auto) Kane # (Auto) Eos # (Auto) Baso # (Auto) PT INR APTT Sodium Potassium Chloride Carbon Dioxide Anion Gap BUN Creatinine Est GFR ( Amer) Est GFR (Non-Af Amer) POC Glucose (mg/dL) 104 Random Glucose Calcium Total Bilirubin AST ALT Alkaline Phosphatase Lactate Dehydrogenase Total Creatine Kinase Troponin I Total Protein Albumin Globulin Albumin/Globulin Ratio Triglycerides Cholesterol LDL Cholesterol Direct HDL Cholesterol Thyroxine (T4) TSH 3rd Generation Urine Opiates Screen Urine Methadone Screen Ur Barbiturates Screen Ur Phencyclidine Scrn Ur Amphetamines Screen U Benzodiazepines Scrn U Oth Cocaine Metabols U Cannabinoids Screen Attending/Attestation - Attestation I have personally seen and examined this patient.: Yes I have fully participated in the care of the patient.: Yes I have reviewed all pertinent clinical information: Yes Notes (Text): 08/13/18 14:55 Medical record note made by the resident after discussion with my direction and input after the patient was personally seen and examined by me. I have reviewed the chart and agree that the record accurately reflects by personal performance of the history, physical exam, data review, and medical decision-making, in the course for the patient. I have also personally directed the plan of care. 53 yo female with a PMH of Obesity, DM, depression, obesity who presents to the ED complaining of blood streaked sputum, cough, SOB, and chest tightness, found to have bilateral basal crackle and leg edema.Patient is not wheezing.We will start patient on IV lasix.We will get 2D echo.Recent CT chest was concerning for miguelangel cardial effusion.We will follow up Echo. Possible Bronchitis, no active hemoptysis, we will start patient on levofloxacin and Neb, no need for steroid at this time. Management plan was discussed in detail with patient. Education was provided.
[2018-08-12 19:18] LABS: HDL CHOLESTEROL 40 mg/dL (29-60)
[2018-08-12 19:28] LABS: LDL CHOLESTEROL 76 mg/dL (0-129)
[2018-08-12 19:34] LABS: T4 10.2 ug/dL (5.5-11.0)
--- NOTE | 2018-08-12 22:14 | CARD ---
APPROVED REPORT Date of service: 08/12/2018 EKG Measurement Heart [id number] MD [id number] <Conclusion> Normal sinus rhythm Normal ECG
[2018-08-12 22:45] VITALS: BMI 42.7
[2018-08-12] MEDS ORDERED: Pneumococcal 23-Valent Vaccine IM ONE (22:46)
[2018-08-12] MEDS ORDERED: Influenza Vaccine 60 mcg/0.5 mL SYR (4YR UP) IM ONE (22:46)
[2018-08-13] MEDS: Albuterol-Ipratrop 3 mg / 0.5 (3 ml) UD IH SCH ×4 (02:20→20:30)
[2018-08-13 07:56] LABS: HEMOGLOBIN 11.5 g/dL (12.0-16.0); MEAN CORPUSCULAR HEMOGLOBIN 25.5 pg (25.0-35.0); MEAN CORPUSCULAR HGB CONC 31.9 g/dl (31.0-37.0); MEAN PLATELET VOLUME 9.6 fl (7.0-11.0); RBC 4.51 10^6/uL (3.5-6.1); WHITE BLOOD COUNT 8.4 10^3/ul (4.5-11.0)
[2018-08-13 08:07] LABS: ALBUMIN 3.9 g/dL (3.0-4.8); BLOOD UREA NITROGEN 11 mg/dL (7-21); CALCIUM 8.9 mg/dL (8.4-10.5); GFR NON-AFRICAN AMERICAN > 60
[2018-08-13 08:08] LABS: ALB/GLOB RATIO 1.1 (1.1-1.8); ALT/SGPT 18 U/L (7-56); AST/SGOT 25 U/L (14-36)
[2018-08-13] MEDS: levoFLOXacin 750 mg in D5W 150 ML BAG IVPB SCH (09:08)
--- NOTE | 2018-08-13 11:27 | CP.PCM.CON ---
History of Present Illness - History of Present Illness History of Present Illness: Awake, alert, denies shortness of breath now Reason for consultation: Cardiac evaluation of shortness of breath Brief history of present illness:A 53 year old morbidly obese female who came in to the ER due to progressive shortness of breath associated with cough.Also complaints of chest tightness with exertion for the past year. She was in the ER the other day with same symptoms but left AMA.history of depression, cocaine use,obesity, diabetes mellitus, current smoker 7 cigarrettes per day for the past 20 years. Seen and examined by me and Dr. Gallagher Review of Systems - Review of Systems All systems: reviewed and no additional remarkable complaints except Review of Systems: as per HPI Past Patient History - Infectious Disease Hx of Infectious Diseases: None - Tetanus Immunizations Tetanus Immunization: Unknown - Past Social History Smoking Status: Light Smoker < 10 Cigarettes Daily - CARDIAC Hx Cardiac Disorders: Yes Hx Cardia Arrhythmia: Yes Hx Hypertension: Yes - PULMONARY Hx Respiratory Disorders: Yes Other/Comment: smoke - NEUROLOGICAL Hx Neurological Disorder: No - HEENT Hx HEENT Problems: Yes (chronic sinusitis) Hx Epistaxis: Yes Other/Comment: otitis - RENAL Hx Chronic Kidney Disease: No - ENDOCRINE/METABOLIC Hx Endocrine Disorders: Yes Other/Comment: Borderline DM - HEMATOLOGICAL/ONCOLOGICAL Hx Blood Disorders: No - INTEGUMENTARY Hx Dermatological Problems: No - MUSCULOSKELETAL/RHEUMATOLOGICAL Hx Musculoskeletal Disorders: Yes Hx Arthritis: Yes Hx Falls: No - GASTROINTESTINAL Hx Gastrointestinal Disorders: Yes (obese) - GENITOURINARY/GYNECOLOGICAL Hx Genitourinary Disorders: Yes (mammo 01/22/17, L ovarian cyst/fibroid) - PSYCHIATRIC Hx Psychophysiologic Disorder: Yes Hx Anxiety: Yes Hx Depression: Yes Hx Emotional Abuse: No Hx Physical Abuse: No Hx Substance Use: Yes (hx cocaine use) - SURGICAL HISTORY Hx Surgeries: No - ANESTHESIA Hx Anesthesia: No Hx Anesthesia Reactions: No Hx Malignant Hyperthermia: No Meds Allergies/Adverse Reactions: Allergies Allergy/AdvReac Type Severity Reaction Status Date / Time No Known Allergies Allergy Verified 08/12/18 16:05 - Medications Medications: Current Medications Albuterol/Ipratropium (Duoneb 3 Mg/0.5 Mg (3 Ml) Ud) 3 ml IH [id number] [facility] Last Admin: 08/13/18 07:16 Dose: 3 ml Albuterol/Ipratropium (Duoneb 3 Mg/0.5 Mg (3 Ml) Ud) 3 ml IH Q2H PRN PRN Reason: Shortness of Breath Furosemide (Lasix) 20 mg PO DAILY [facility] Last Admin: 08/13/18 10:56 Dose: Not Given Insulin Human Regular (Humulin R Low) 0 units SC ACHS [facility]; Protocol Levofloxacin/Dextrose (Levaquin 750mg) 750 mg IVPB DAILY [facility]; Protocol Last Admin: 08/13/18 09:08 Dose: 750 mg Lisinopril (Zestril) 20 mg PO DAILY [facility] Last Admin: 08/13/18 09:09 Dose: 20 mg Quetiapine Fumarate (Seroquel) 50 mg PO HS [facility]; Protocol Last Admin: 08/12/18 21:47 Dose: 50 mg Physical Exam - Constitutional Appears: Non-toxic, No Acute Distress - Head Exam Head Exam: NORMAL INSPECTION, NORMOCEPHALIC - Eye Exam Eye Exam: Normal appearance Pupil Exam: NORMAL ACCOMODATION - ENT Exam ENT Exam: Mucous Membranes Moist, Normal Exam - Neck Exam Neck exam: Positive for: Full Rom, Normal Inspection - Respiratory Exam Respiratory Exam: Decreased Breath Sounds, NORMAL BREATHING PATTERN - Cardiovascular Exam Cardiovascular Exam: REGULAR RHYTHM, +S1, +S2 Additional comments: No JVD, no murmur - GI/Abdominal Exam GI & Abdominal Exam: Normal Bowel Sounds, Soft - Extremities Exam Additional comments: 1-2+ edema - Neurological Exam Neurological exam: Alert, Oriented x3 - Skin Skin Exam: Dry, Normal Color, Warm Results - Vital Signs Recent Vital Signs: Last Vital Signs Temp 98.5 F 08/13/18 08:31 Pulse 73 08/13/18 09:09 Resp 20 08/13/18 08:31 BP 118/81 08/13/18 09:09 Pulse Ox 95 08/13/18 08:31 - Labs Result Diagrams: 08/13/18 07:00 08/13/18 07:00 Labs: Laboratory Results - last 24 hr 08/12/18 08/12/18 08/12/18 16:40 17:00 17:00 WBC 7.9 RBC 4.50 Hgb 11.7 L Hct 36.6 MCV 81.3 MCH 26.0 MCHC 32.0 RDW 16.5 H Plt Count 261 MPV 9.8 Gran % 56.4 Lymph % (Auto) 36.8 H Mcleod % (Auto) 5.4 Eos % (Auto) 1.0 L Baso % (Auto) 0.4 Gran # 4.46 Lymph # (Auto) 2.9 Mcleod # (Auto) 0.4 Eos # (Auto) 0.1 Baso # (Auto) 0.03 PT 13.1 H INR 1.15 APTT 22.5 L Sodium Potassium Chloride Carbon Dioxide Anion Gap BUN Creatinine Est GFR ( Amer) Est GFR (Non-Af Amer) POC Glucose (mg/dL) Random Glucose Calcium Total Bilirubin AST ALT Alkaline Phosphatase Lactate Dehydrogenase Total Creatine Kinase Troponin I Total Protein Albumin Globulin Albumin/Globulin Ratio Triglycerides Cholesterol LDL Cholesterol Direct HDL Cholesterol Thyroxine (T4) TSH 3rd Generation Urine Opiates Screen Negative Urine Methadone Screen Negative Ur Barbiturates Screen Negative Ur Phencyclidine Scrn Negative Ur Amphetamines Screen Negative U Benzodiazepines Scrn Negative U Oth Cocaine Metabols Negative U Cannabinoids Screen Negative 08/12/18 08/12/18 08/12/18 17:00 17:00 17:00 WBC RBC Hgb Hct MCV MCH MCHC RDW Plt Count MPV Gran % Lymph % (Auto) Mcleod % (Auto) Eos % (Auto) Baso % (Auto) Gran # Lymph # (Auto) Mcleod # (Auto) Eos # (Auto) Baso # (Auto) PT INR APTT Sodium 139 Potassium 4.3 Chloride 109 H Carbon Dioxide 22 Anion Gap 12 BUN 11 Creatinine 0.8 Est GFR ( Amer) > 60 Est GFR (Non-Af Amer) > 60 POC Glucose (mg/dL) Random Glucose 90 Calcium 8.8 Total Bilirubin 0.2 AST 19 ALT 12 Alkaline Phosphatase 62 Lactate Dehydrogenase 576 Total Creatine Kinase 178 Troponin I < 0.01 Total Protein 7.5 Albumin 3.9 Globulin 3.7 Albumin/Globulin Ratio 1.1 Triglycerides 91 Cholesterol 137 LDL Cholesterol Direct 76 HDL Cholesterol 40 Thyroxine (T4) 10.2 TSH 3rd Generation 1.55 Urine Opiates Screen Urine Methadone Screen Ur Barbiturates Screen Ur Phencyclidine Scrn Ur Amphetamines Screen U Benzodiazepines Scrn U Oth Cocaine Metabols U Cannabinoids Screen 08/13/18 08/13/18 08/13/18 07:00 07:00 08:39 WBC 8.4 RBC 4.51 Hgb 11.5 L Hct 36.1 MCV 80.0 MCH 25.5 MCHC 31.9 RDW 16.0 H Plt Count 287 MPV 9.6 Gran % Lymph % (Auto) Mcleod % (Auto) Eos % (Auto) Baso % (Auto) Gran # Lymph # (Auto) Mcleod # (Auto) Eos # (Auto) Baso # (Auto) PT INR APTT Sodium 139 Potassium 3.7 Chloride 106 Carbon Dioxide 24 Anion Gap 12 BUN 11 Creatinine 0.8 Est GFR ( Amer) > 60 Est GFR (Non-Af Amer) > 60 POC Glucose (mg/dL) 114 H Random Glucose 115 H Calcium 8.9 Total Bilirubin 0.5 AST 25 ALT 18 Alkaline Phosphatase 65 Lactate Dehydrogenase Total Creatine Kinase Troponin I Total Protein 7.5 Albumin 3.9 Globulin 3.5 Albumin/Globulin Ratio 1.1 Triglycerides Cholesterol LDL Cholesterol Direct HDL Cholesterol Thyroxine (T4) TSH 3rd Generation Urine Opiates Screen Urine Methadone Screen Ur Barbiturates Screen Ur Phencyclidine Scrn Ur Amphetamines Screen U Benzodiazepines Scrn U Oth Cocaine Metabols U Cannabinoids Screen Assessment & Plan - Assessment and Plan (Free Text) Assessment: A 53 year old morbidly obese female who came in to the ER due to progressive shortness of breath associated with cough with phlegm. Also complaints of chest tightness with exertion for the past year. She was in the ER the other day with same symptoms but left AMA.history of depression, cocaine use,obesity, diabetes mellitus, current smoker 7 cigarrettes per day for the past 20 years. EKG- normal sinus rhythm, no ischemia. Troponin negative. Chest ray- normal results, unremarkable. CT of chest showed small pericardial effusion, emphysematous changes Small to moderate hiatal hernia. rule out congestive heart failure, no evidence of congestion.Bronchitis, exacerbation of COPD. Echo to evaluate LV function. Review of previous cardiac work [place] [facility] [place]/12- Normal stress test Plan: For ECHO today to evaluate LV function No distress, some chest heaviness,Denies shortness of breath Continue nebulizer treatment CT of chest and X ray no evidence of congestion Heart rate controlled Blood pressure controlled Will start on Nicoderm patch On Lasix 20 mg daily, Zestril 20 mg daily, Cozaar 50 mg daily Continue antibiotics as ordered Continue current medications Continue current treatment Lifestyle modification Weight reduction Smoking cessation Will follow up Further recommendation during hospital course Plan and treatment discussed with Dr. Gallagher Thank you Dr. Welsh for the opportunity in taking care of . Ebony Dangelo - Date & Time Date: 08/13/18 Time: 06:50
[2018-08-13] MEDS: Insulin Reg-LOW-Coverage SC SCH ×3 (11:51→23:11)
--- NOTE | 2018-08-13 12:31 | CP.PCM.PN ---
<Federico Jordan - Last Filed: 08/13/18 12:28> Subjective - Date & Time of Evaluation Date of Evaluation: 08/13/18 Time of Evaluation: 10:15 - Subjective Subjective: PGY-1 Medicine Progress note for Dr. Welsh's service Patient seen and examined at bedside. Patient offers no acute complaints. Patient denies hemoptysis. Patient denies fevers, chills, chest pain, sob, n/v, constipation or diarrhea, dysuria. Objective - Vital Signs/Intake and Output Vital Signs (last 24 hours): Temp Pulse Resp BP Pulse Ox 98.5 F 73 20 118/81 95 08/13/18 08:31 08/13/18 09:09 08/13/18 08:31 08/13/18 09:09 08/13/18 08:31 - Medications Medications: Current Medications Albuterol/Ipratropium (Duoneb 3 Mg/0.5 Mg (3 Ml) Ud) 3 ml IH [id number] [facility] Last Admin: 08/13/18 07:16 Dose: 3 ml Albuterol/Ipratropium (Duoneb 3 Mg/0.5 Mg (3 Ml) Ud) 3 ml IH Q2H PRN PRN Reason: Shortness of Breath Furosemide (Lasix) 20 mg PO DAILY [facility] Last Admin: 08/13/18 10:56 Dose: Not Given Insulin Human Regular (Humulin R Low) 0 units SC ACHS [facility]; Protocol Levofloxacin/Dextrose (Levaquin 750mg) 750 mg IVPB DAILY [facility]; Protocol Last Admin: 08/13/18 09:08 Dose: 750 mg Lisinopril (Zestril) 20 mg PO DAILY [facility] Last Admin: 08/13/18 09:09 Dose: 20 mg Losartan Potassium (Cozaar) 50 mg PO DAILY [facility] Nicotine (Nicoderm Cq) 1 patch TD DAILY [facility] Quetiapine Fumarate (Seroquel) 50 mg PO HS [facility]; Protocol Last Admin: 08/12/18 21:47 Dose: 50 mg - Labs Labs: 08/13/18 07:00 08/13/18 07:00 PT 13.1 SECONDS (9.4-12.5) H 08/12/18 17:00 INR 1.15 08/12/18 17:00 APTT 22.5 Seconds (25.1-36.5) L 08/12/18 17:00 - Constitutional Appears: Non-toxic, No Acute Distress - Head Exam Head Exam: NORMAL INSPECTION, NORMOCEPHALIC - Eye Exam Eye Exam: EOMI, Normal appearance. absent: Nystagmus, Scleral icterus - ENT Exam ENT Exam: Mucous Membranes Moist - Respiratory Exam Respiratory Exam: Clear to Ausculation Bilateral, NORMAL BREATHING PATTERN. absent: Rales, Rhonchi, Wheezes - Cardiovascular Exam Cardiovascular Exam: REGULAR RHYTHM, +S1, +S2. absent: Bradycardia, Tachycardia - GI/Abdominal Exam GI & Abdominal Exam: Soft, Normal Bowel Sounds. absent: Distended, Firm, Guarding, Tenderness - Extremities Exam Extremities Exam: Normal Inspection. absent: Calf Tenderness, Pedal Edema - Neurological Exam Neurological Exam: Alert, Awake, Oriented x3 - Psychiatric Exam Psychiatric exam: Normal Affect, Normal Mood - Skin Skin Exam: Intact, Normal Color Assessment and Plan - Assessment and Plan (Free Text) Assessment: Pt is a 53 yo female with a PMH of cocaine use (per chart review), DM, depression, obesity who presents to the ED complaining of blood streaked sputum, cough, SOB, and chest tightness. Pt was at the ED yesterday and left AMA. She started coughing up green sputum today and decided to come back. Plan: Viral bronchitis 08/11/18 Cxray- no active disease 08/11/[address]- Small pericardial effusion; small to moderate hiatal hernia Afebrile; no leukocytosis noted Levaquin 750mg IVPB Sputum cx pending PNA studies pending Duonebs q6 scheduled Duonebs q2 prn Will consult pulm if patient continues to have hemoptysis Pedal Edema, r/o CHF Cardiology consulted- Dr. Gallagher- recommendations as below Pericardial effusion noted on chest CT Lipid panel normal Echo pending Lasix 20mg po daily Cozaar 50mg po daily DM2 HgbA1C Diabetic Diet ISS- low dose w/ ACHS HTN Lasix 20mg po daily Cozaar 50mg po daily; Stopped lisinopril as patient is only on Cozaar Depression Seroquel 50mg po HS [facility] PPx GI ppx- Protonix 40mg po HS DVT ppx- SCDs Medical management discussed with Dr. Blaise Jordan PGY1 <Irfan,Mohammad - Last Filed: 08/13/18 14:57> Objective - Vital Signs/Intake and Output Vital Signs (last 24 hours): Temp Pulse Resp BP Pulse Ox 98.5 F 73 20 118/81 95 08/13/18 08:31 08/13/18 09:09 08/13/18 08:31 08/13/18 09:09 08/13/18 08:31 - Medications Medications: Current Medications Albuterol/Ipratropium (Duoneb 3 Mg/0.5 Mg (3 Ml) Ud) 3 ml IH [id number] [facility] Last Admin: 08/13/18 13:42 Dose: 3 ml Albuterol/Ipratropium (Duoneb 3 Mg/0.5 Mg (3 Ml) Ud) 3 ml IH Q2H PRN PRN Reason: Shortness of Breath Furosemide (Lasix) 20 mg PO DAILY [facility] Last Admin: 08/13/18 10:56 Dose: Not Given Insulin Human Regular (Humulin R Low) 0 units SC ACHS [facility]; Protocol Last Admin: 08/13/18 11:51 Dose: Not Given Levofloxacin/Dextrose (Levaquin 750mg) 750 mg IVPB DAILY [facility]; Protocol Last Admin: 08/13/18 09:08 Dose: 750 mg Losartan Potassium (Cozaar) 50 mg PO DAILY [facility] Last Admin: 08/13/18 12:51 Dose: 50 mg Nicotine (Nicoderm Cq) 1 patch TD DAILY [facility] Pantoprazole Sodium (Protonix Ec Tab) 40 mg PO 0600 [facility] Quetiapine Fumarate (Seroquel) 50 mg PO HS [facility]; Protocol Last Admin: 08/12/18 21:47 Dose: 50 mg - Labs Labs: 08/13/18 07:00 08/13/18 07:00 PT 13.1 SECONDS (9.4-12.5) H 08/12/18 17:00 INR 1.15 08/12/18 17:00 APTT 22.5 Seconds (25.1-36.5) L 08/12/18 17:00 Attending/Attestation - Attestation I have personally seen and examined this patient.: Yes I have fully participated in the care of the patient.: Yes I have reviewed all pertinent clinical information, including history, physical exam and plan: Yes Notes (Text): 08/13/18 14:52 Medical record note made by the resident after discussion with my direction and input after the patient was personally seen and examined by me. I have reviewed the chart and agree that the record accurately reflects by personal performance of the history, physical exam, data review, and medical decision-making, in the course for the patient. I have also personally directed the plan of care. 53 yo female with a PMH of Obesity, DM, depression, obesity who presents to the ED complaining of blood streaked sputum, cough, SOB, and chest tightness, found to have bilateral basal crackle and leg edema.Patient was not wheezing, has responded well to IV lasix.We will follow up Echo. Possible Bronchitis, no active hemoptysis, we will start patient on levofloxacin and Neb, no need for steroid at this time. Management plan was discussed in detail with patient. Education was provided. 08/13/18 14:56
--- NOTE | 2018-08-13 17:06 | CARD ---
APPROVED REPORT Date of service: 08/13/2018 EXAM: Two-dimensional and M-mode echocardiogram with Doppler and color Doppler. INDICATION Pericardial Effusion 2D DIMENSIONS Left Atrium (2D)3.7 (1.6-4.0cm)IVSd1.7 (0.7-1.1cm) Aortic Root (2D)3.1 (2.0-3.7cm)LVDd3.2 (3.9-5.9cm) PWd1.9 (0.7-1.1cm)LVDs2.0 (2.5-4.0cm) FS (%) 37.2 %LVEF (%)68.5 (>50%) M-Mode DIMENSIONS Aortic Root2.00 (2.2-3.7cm) Mitral Valve MV E Lnorpwky63.0cm/sMV A Upkfrgsv01.8cm/sE/A ratio0.8 TDI Lateral E' Peak V4.68cm/sMedial E' Peak V6.82cm/sE/Lateral E'14.5 E/Medial E'10.0 Pulmonary Valve PV Peak Soeglymg16.5cm/sPV Peak Grad.3mmHg LEFT VENTRICLE The left ventricle is normal size. There is moderate concentric left ventricular hypertrophy. The left ventricular function is normal. The left ventricular ejection fraction is within the normal range. There is normal LV segmental wall motion. Transmitral Doppler flow pattern is Grade I-abnormal relaxation pattern. RIGHT VENTRICLE The right ventricle is normal size. There is normal right ventricular wall thickness. The right ventricular systolic function is normal. ATRIA The left atrium size is normal. The right atrium size is normal. AORTIC VALVE The aortic valve is not well visualized. No aortic regurgitation is present. There is no aortic valvular stenosis. MITRAL VALVE The mitral valve is not well visualized. There is no mitral valve regurgitation noted. There is no mitral valve stenosis. TRICUSPID VALVE The tricuspid valve is normal in structure. There is no tricuspid valve regurgitation noted. PULMONIC VALVE There is trace pulmonic valvular regurgitation. GREAT VESSELS The aortic root is normal in size. PERICARDIAL EFFUSION There is a trace loculated anterior pericardial effusion. <Conclusion> The left ventricle is normal size. There is moderate concentric left ventricular hypertrophy. The left ventricular function is normal. The left ventricular ejection fraction is within the normal range. There is normal LV segmental wall motion. Transmitral Doppler flow pattern is Grade I-abnormal relaxation pattern. There is a trace loculated anterior pericardial effusion.
[2018-08-13] MEDS ORDERED: DiphenhydrAMINE 50 mg/ml Inj IVP STA (20:10)
[2018-08-13] MEDS ORDERED: DiphenhydrAMINE 50 mg/ml Inj IVP ONE (22:00)
[2018-08-14] MEDS ORDERED: Pantoprazole 40 mg EC Tab PO SCH (06:00)
[2018-08-14 06:54] LABS: HEMOGLOBIN 11.6 g/dL (12.0-16.0); MEAN CELL VOLUME 80.4 fl (80.0-105.0); MEAN CORPUSCULAR HEMOGLOBIN 25.5 pg (25.0-35.0); MEAN CORPUSCULAR HGB CONC 31.7 g/dl (31.0-37.0); MEAN PLATELET VOLUME 9.6 fl (7.0-11.0); RBC 4.55 10^6/uL (3.5-6.1); RED CELL DISTRIBUTION WIDTH 15.8 % (11.5-14.5); WHITE BLOOD COUNT 8.5 10^3/ul (4.5-11.0)
[2018-08-14 07:32] LABS: ALB/GLOB RATIO 1.1 (1.1-1.8); ALBUMIN 3.7 g/dL (3.0-4.8); ALT/SGPT 19 U/L (7-56); AST/SGOT 17 U/L (14-36); BLOOD UREA NITROGEN 14 mg/dL (7-21); GFR NON-AFRICAN AMERICAN > 60
[2018-08-14 07:43] VITALS: PULSE 85; RESP 19; TEMP 98.5; O2SAT 96
[2018-08-14] MEDS: Insulin Reg-LOW-Coverage SC SCH (07:48)
[2018-08-14] MEDS: Albuterol-Ipratrop 3 mg / 0.5 (3 ml) UD IH SCH (08:08)
--- NOTE | 2018-08-14 09:13 | CP.PCM.PN ---
Subjective - Date & Time of Evaluation Date of Evaluation: 08/14/18 Time of Evaluation: 06:50 - Subjective Subjective: Awake, alert, denies shortness of breath now Reason for consultation and follow up: Cardiac evaluation of shortness of breath,history of depression, cocaine use,obesity, diabetes mellitus, current smoker 7 cigarrettes per day for the past 20 years. Seen and examined by me and Dr. Gallagher Objective - Vital Signs/Intake and Output Vital Signs (last 24 hours): Temp Pulse Resp BP Pulse Ox 98.5 F 85 19 99/61 L 96 08/14/18 07:42 08/14/18 07:42 08/14/18 07:42 08/14/18 07:42 08/14/18 07:42 Intake and Output: 08/14/18 08/14/18 06:59 18:59 Intake Total 300 Balance 300 - Medications Medications: Current Medications Albuterol/Ipratropium (Duoneb 3 Mg/0.5 Mg (3 Ml) Ud) 3 ml [facility] [id number] Last Admin: 08/14/18 08:08 Dose: 3 ml Albuterol/Ipratropium (Duoneb 3 Mg/0.5 Mg (3 Ml) Ud) 3 ml IH Q2H PRN PRN Reason: Shortness of Breath Furosemide (Lasix) 20 mg PO DAILY [facility] Last Admin: 08/13/18 10:56 Dose: Not Given Heparin Sodium (Porcine) (Heparin) 5,000 units SC Q8 [facility]; Protocol Last Admin: 08/14/18 06:34 Dose: Not Given Insulin Human Regular (Humulin R Low) 0 units SC ACHS [facility]; Protocol Last Admin: 08/14/18 07:48 Dose: Not Given Levofloxacin/Dextrose (Levaquin 750mg) 750 mg IVPB DAILY [facility]; Protocol Last Admin: 08/13/18 09:08 Dose: 750 mg Losartan Potassium (Cozaar) 50 mg PO DAILY [facility] Last Admin: 08/13/18 12:51 Dose: 50 mg Nicotine (Nicoderm Cq) 1 patch TD DAILY [facility] Pantoprazole Sodium (Protonix Ec Tab) 40 mg PO 0600 [facility] Last Admin: 08/14/18 06:33 Dose: 40 mg Quetiapine Fumarate (Seroquel) 50 mg PO HS [facility]; Protocol Last Admin: 10/20/18 21:45 Dose: 50 mg - Labs Labs: 08/14/18 06:30 08/14/18 06:30 PT 13.1 SECONDS (9.4-12.5) H 08/12/18 17:00 INR 1.15 08/12/18 17:00 APTT 22.5 Seconds (25.1-36.5) L 08/12/18 17:00 - Constitutional Appears: Non-toxic, No Acute Distress - Head Exam Head Exam: NORMAL INSPECTION, NORMOCEPHALIC - Eye Exam Eye Exam: Normal appearance Pupil Exam: NORMAL ACCOMODATION - ENT Exam ENT Exam: Mucous Membranes Moist, Normal Exam - Respiratory Exam Respiratory Exam: Decreased Breath Sounds, Clear to Ausculation Bilateral, NORMAL BREATHING PATTERN - Cardiovascular Exam Cardiovascular Exam: +S1, +S2 - GI/Abdominal Exam GI & Abdominal Exam: Soft, Normal Bowel Sounds - Extremities Exam Extremities Exam: Normal Capillary Refill - Neurological Exam Neurological Exam: Alert, Awake, Oriented x3 - Psychiatric Exam Psychiatric exam: Normal Affect, Normal Mood - Skin Skin Exam: Dry, Normal Color, Warm Assessment and Plan - Assessment and Plan (Free Text) Assessment: A 53 year old morbidly obese female who came in to the ER due to progressive shortness of breath associated with cough with phlegm. Also complaints of chest tightness with exertion for the past year. She was in the ER the other day with same symptoms but left AMA.history of depression, cocaine use,obesity, diabetes mellitus, current smoker 7 cigarrettes per day for the past 20 years. EKG- normal sinus rhythm, no ischemia. Troponin negative. Chest ray- normal results, unremarkable. CT of chest showed small pericardial effusion, emphysematous changes Small to moderate hiatal hernia. rule out congestive heart failure, no evidence of congestion.Bronchitis, exacerbation of COPD ECHO done- Normal LV size, LVEF 65%, Trace loculated anterior pericardial effusion. no further work up needed. Review [place] [facility] [place]- Normal stress test Plan: ECHO done- Normal LV size, LVEF 65% Trace loculated anterior pericardial effusion No further work up necessary for the pericardial effusion Feels better today,No distress,Denies shortness of breath Continue nebulizer treatment Heart rate controlled Blood pressure controlled On Lasix 20 mg daily, Zestril 20 mg daily, Cozaar 50 mg daily Nicoderm patch daily Continue antibiotics as ordered Continue current medications Continue current treatment Lifestyle modification Weight reduction Smoking cessation Will follow up Plan and treatment discussed with Dr. Gallagher
[2018-08-14] MEDS: levoFLOXacin 750 mg in D5W 150 ML BAG IVPB SCH (10:09)
[2018-08-14 10:19] VITALS: BP 115/61
--- NOTE | 2018-08-14 11:28 | CP.PCM.DIS ---
Addendum entered and electronically signed by Fedreico Jordan DO 08/14/18 14:42: Patient required lasix for discharge. Patient was spoke to on phone. Patient stated that the medication can be sent to [facility] in [place] [facility]. Patient was made aware about dosage and instructions to take daily. Patient was told on phone to follow up with primary medical doctor as well. Original Note: <Federico Jordan - Last Filed: 08/14/18 11:31> Provider - Provider Date of Admission: 08/12/18 15:58 Attending physician: Michelle Welsh MD Consults: Dr. Gallagher Time Spent in preparation of Discharge (in minutes): 45 Hospital Course - Lab Results Lab Results: Most Recent Lab Values WBC 8.5 10^3/ul (4.5-11.0) 08/14/18 06:30 RBC 4.55 10^6/uL (3.5-6.1) 08/14/18 06:30 Hgb 11.6 g/dL (12.0-16.0) L 08/14/18 06:30 Hct 36.6 % (36.0-48.0) 08/14/18 06:30 MCV 80.4 fl (80.0-105.0) 08/14/18 06:30 MCH 25.5 pg (25.0-35.0) 08/14/18 06:30 MCHC 31.7 g/dl (31.0-37.0) 08/14/18 06:30 RDW 15.8 % (11.5-14.5) H 08/14/18 06:30 Plt Count 282 10^3/uL (120.0-450.0) 08/14/18 06:30 MPV 9.6 fl (7.0-11.0) 08/14/18 06:30 Gran % 56.4 % (50.0-68.0) 08/12/18 17:00 Lymph % (Auto) 36.8 % (22.0-35.0) H 08/12/18 17:00 [place] % (Auto) 5.4 % (1.0-6.0) 08/12/18 17:00 Eos % (Auto) 1.0 % (1.5-5.0) L 08/12/18 17:00 Baso % (Auto) 0.4 % (0.0-3.0) 08/12/18 17:00 Gran # 4.46 (1.4-6.5) 08/12/18 17:00 Lymph # (Auto) 2.9 (1.2-3.4) 08/12/18 17:00 [place] # (Auto) 0.4 (0.1-0.6) 08/12/18 17:00 Eos # (Auto) 0.1 (0.0-0.7) 08/12/18 17:00 Baso # (Auto) 0.03 K/mm3 (0.0-2.0) 08/12/18 17:00 PT 13.1 SECONDS (9.4-12.5) H 08/12/18 17:00 INR 1.15 08/12/18 17:00 APTT 22.5 Seconds (25.1-36.5) L 08/12/18 17:00 Sodium 138 mmol/L (132-148) 08/14/18 06:30 Potassium 4.2 mmol/L (3.6-5.0) 08/14/18 06:30 Chloride 106 mmol/L (98-107) 08/14/18 06:30 Carbon Dioxide 25 mmol/L (21-33) 08/14/18 06:30 Anion Gap 11 (10-20) 08/14/18 06:30 BUN 14 mg/dL (7-21) 08/14/18 06:30 Creatinine 0.8 mg/dl (0.7-1.2) 08/14/18 06:30 Est GFR ( Amer) > 60 08/14/18 06:30 Est GFR (Non-Af Amer) > 60 08/14/18 06:30 POC Glucose (mg/dL) 139 mg/dL (65-110) H 08/13/18 16:48 Random Glucose 127 mg/dL (70-110) H 08/14/18 06:30 Hemoglobin A1c 6.0 % (4.2-6.5) 08/12/18 17:00 Calcium 9.0 mg/dL (8.4-10.5) 08/14/18 06:30 Total Bilirubin 0.3 mg/dL (0.2-1.3) 08/14/18 06:30 AST 17 U/L (14-36) 08/14/18 06:30 ALT 19 U/L (7-56) 08/14/18 06:30 Alkaline Phosphatase 62 U/L (38-126) 08/14/18 06:30 Lactate Dehydrogenase 576 U/L (333-699) 08/12/18 17:00 Total Creatine Kinase 178 U/L (35-230) 08/12/18 17:00 Troponin I < 0.01 ng/mL 08/12/18 17:00 Total Protein 7.1 g/dL (5.8-8.3) 08/14/18 06:30 Albumin 3.7 g/dL (3.0-4.8) 08/14/18 06:30 Globulin 3.5 gm/dL 08/14/18 06:30 Albumin/Globulin Ratio 1.1 (1.1-1.8) 08/14/18 06:30 Triglycerides 91 mg/dL (35-160) 08/12/18 17:00 Cholesterol 137 mg/dL (130-200) 08/12/18 17:00 LDL Cholesterol Direct 76 mg/dL (0-129) 08/12/18 17:00 HDL Cholesterol 40 mg/dL (29-60) 08/12/18 17:00 Thyroxine (T4) 10.2 ug/dL (5.5-11.0) 08/12/18 17:00 TSH 3rd Generation 1.55 mIU/mL (0.46-4.68) 08/12/18 17:00 Urine Opiates Screen Negative (NEGATIVE) 08/12/18 16:40 Urine Methadone Screen Negative (NEGATIVE) 08/12/18 16:40 Ur Barbiturates Screen Negative (NEGATIVE) 08/12/18 16:40 Ur Phencyclidine Scrn Negative (NEGATIVE) 08/12/18 16:40 Ur Amphetamines Screen Negative (NEGATIVE) 08/12/18 16:40 U Benzodiazepines Scrn Negative (NEGATIVE) 08/12/18 16:40 U Oth Cocaine Metabols Negative (NEGATIVE) 08/12/18 16:40 U Cannabinoids Screen Negative (NEGATIVE) 08/12/18 16:40 Ur L.pneumophila Ag Negative (NEGATIVE) 08/13/18 06:45 - Hospital Course Hospital Course: Upon Admission Pt is a 53 yo female with a PMH of cocaine use (per chart review), DM, depression, obesity who presents to the ED complaining of blood streaked sputum, cough, SOB, and chest tightness. The blood streaked sputum first began about 4-5 months. Pt reports chest tightness for the past year with exertion. Pt reports SOB with walking, and sometimes during conversations. Pt is fully able to converse during the interview. Pt states that the SOB has gotten progressively worse. Pt is unsure if the cough, SOB, or chest tightness came fist, but they have been going on for the past year. Pt was at the ED yesterday and left AMA. She started coughing up green sputum today and decided to come back. A 12 point ROS was obtained and added to the HPI. Hospital Course Pt is a 53 yo female with a PMH of cocaine use (per chart review), DM, depression, obesity who presents to the ED complaining of blood streaked sputum, cough, SOB, and chest tightness. Pt was at the ED yesterday and left AMA. She started coughing up green sputum today and decided to come back. Cxray showed no acute findings. CT chest showed small pericardial effusion, moderate hiatal hernia, trace effusions. Patient breathing and and chest tightness improved with breathing treatments and duonebs. Patient had an echo done 2/2 pericardial effusion which showed moderate concentric LVH and trace loculated pericardial effusion. Patient educated to followup with pmd and Dr. Gallagher as recommended in discharge plan. Discharge Plan Patient is stable for discharge to home as per Dr. Welsh. Patient is educated to followup with pmd 3-7 days of discharge and Dr. Gallagher within 4-6 weeks of discharge from hospital. Patient will resume all home medications as prescribed. Patient will be discharged with levaquin, asmenex, and Ventolin to use as instructed. Patient should return to hospital if symptoms worsen or recur. Patient understands the plan as above and agrees. Disclaimer Written above is a synopsis of patient's current hospital admission. For full report refer to EMR. Discharge Exam - Head Exam Head Exam: NORMAL INSPECTION, NORMOCEPHALIC - Eye Exam Eye Exam: EOMI, Normal appearance. absent: Nystagmus, Scleral icterus - ENT Exam ENT Exam: Mucous Membranes Moist - Respiratory Exam Respiratory Exam: NORMAL BREATHING PATTERN. absent: Rales, Rhonchi, Wheezes, Respiratory Distress - Cardiovascular Exam Cardiovascular Exam: REGULAR RHYTHM, +S1, +S2. absent: Bradycardia, Tachycardia - GI/Abdominal Exam GI & Abdominal Exam: Normal Bowel Sounds, Soft. absent: Diminished Bowel Sounds, Distended, Firm, Guarding, Tenderness - Extremities Exam Extremities exam: normal inspection - Psychiatric Exam Psychiatric exam: Normal Affect, Normal Mood - Skin Skin Exam: Dry, Intact, Normal Color Discharge Plan - Discharge Medications Prescriptions: RX: Albuterol HFA [Ventolin HFA 90 mcg/actuation (8 g)] 1 puff IH Q4H #1 inhaler RX: levoFLOXacin [Levaquin] 750 mg PO DAILY #3 tab Mometasone [Asmanex Twisthaler 110 MCG] 1 puff INH DAILY #1 inhaler - Follow Up Plan Condition: STABLE Disposition: HOME/ ROUTINE Instructions: Pleural Effusion, Shortness of Breath (Dyspnea) (DC) Additional Instructions: 1. Patient is stable for discharge to home as per Dr. Welsh 2. Patient needs to followup with primary medical doctor Dr. Rodriguez within 3-7 days of discharge from hospital. Patient will need to followup with Dr. Gallagher within 4-6 weeks for repeat imaging for pericardial effusion. Information will be provided to patient for Dr. Gallagher's office. 3. Patient should resume all home medications as prescribed. Patient will be discharged with 3 new medications to be taken as prescribed: Levaquin 750mg daily for 3 days Albuterol Inhaler as needed up to 6x a day Asmanex 1 puff daily everyday for next 2 weeks; Follow up with primary doctor for adjustments if necessary 4. Patient should return to hospital if symptoms worsen or recur. 5. Patient understands the plan as above and agrees. Referrals: Cyndi Rodriguez DO [Family Provider] - Michelle Gallagher MD [Staff Provider] - <Michelle Welsh - Last Filed: 08/14/18 14:36> Provider - Provider Date of Admission: 08/12/18 15:58 Attending physician: Michelle Welsh MD Hospital Course - Lab Results Lab Results: Most Recent Lab Values WBC 8.5 10^3/ul (4.5-11.0) 08/14/18 06:30 RBC 4.55 10^6/uL (3.5-6.1) 08/14/18 06:30 Hgb 11.6 g/dL (12.0-16.0) L 08/14/18 06:30 Hct 36.6 % (36.0-48.0) 08/14/18 06:30 MCV 80.4 fl (80.0-105.0) 08/14/18 06:30 MCH 25.5 pg (25.0-35.0) 08/14/18 06:30 MCHC 31.7 g/dl (31.0-37.0) 08/14/18 06:30 RDW 15.8 % (11.5-14.5) H 08/14/18 06:30 Plt Count 282 10^3/uL (120.0-450.0) 08/14/18 06:30 MPV 9.6 fl (7.0-11.0) 08/14/18 06:30 Gran % 56.4 % (50.0-68.0) 08/12/18 17:00 Lymph % (Auto) 36.8 % (22.0-35.0) H 08/12/18 17:00 [place] % (Auto) 5.4 % (1.0-6.0) 08/12/18 17:00 Eos % (Auto) 1.0 % (1.5-5.0) L 08/12/18 17:00 Baso % (Auto) 0.4 % (0.0-3.0) 08/12/18 17:00 Gran # 4.46 (1.4-6.5) 08/12/18 17:00 Lymph # (Auto) 2.9 (1.2-3.4) 08/12/18 17:00 [place] # (Auto) 0.4 (0.1-0.6) 08/12/18 17:00 Eos # (Auto) 0.1 (0.0-0.7) 08/12/18 17:00 Baso # (Auto) 0.03 K/mm3 (0.0-2.0) 08/12/18 17:00 PT 13.1 SECONDS (9.4-12.5) H 08/12/18 17:00 INR 1.15 08/12/18 17:00 APTT 22.5 Seconds (25.1-36.5) L 08/12/18 17:00 Sodium 138 mmol/L (132-148) 08/14/18 06:30 Potassium 4.2 mmol/L (3.6-5.0) 08/14/18 06:30 Chloride 106 mmol/L (98-107) 08/14/18 06:30 Carbon Dioxide 25 mmol/L (21-33) 08/14/18 06:30 Anion Gap 11 (10-20) 08/14/18 06:30 BUN 14 mg/dL (7-21) 08/14/18 06:30 Creatinine 0.8 mg/dl (0.7-1.2) 08/14/18 06:30 Est GFR ( Amer) > 60 08/14/18 06:30 Est GFR (Non-Af Amer) > 60 08/14/18 06:30 POC Glucose (mg/dL) 139 mg/dL (65-110) H 08/13/18 16:48 Random Glucose 127 mg/dL (70-110) H 08/14/18 06:30 Hemoglobin A1c 6.0 % (4.2-6.5) 08/12/18 17:00 Calcium 9.0 mg/dL (8.4-10.5) 08/14/18 06:30 Total Bilirubin 0.3 mg/dL (0.2-1.3) 08/14/18 06:30 AST 17 U/L (14-36) 08/14/18 06:30 ALT 19 U/L (7-56) 08/14/18 06:30 Alkaline Phosphatase 62 U/L (38-126) 08/14/18 06:30 Lactate Dehydrogenase 576 U/L (333-699) 08/12/18 17:00 Total Creatine Kinase 178 U/L (35-230) 08/12/18 17:00 Troponin I < 0.01 ng/mL 08/12/18 17:00 Total Protein 7.1 g/dL (5.8-8.3) 08/14/18 06:30 Albumin 3.7 g/dL (3.0-4.8) 08/14/18 06:30 Globulin 3.5 gm/dL 08/14/18 06:30 Albumin/Globulin Ratio 1.1 (1.1-1.8) 08/14/18 06:30 Triglycerides 91 mg/dL (35-160) 08/12/18 17:00 Cholesterol 137 mg/dL (130-200) 08/12/18 17:00 LDL Cholesterol Direct 76 mg/dL (0-129) 08/12/18 17:00 HDL Cholesterol 40 mg/dL (29-60) 08/12/18 17:00 Thyroxine (T4) 10.2 ug/dL (5.5-11.0) 08/12/18 17:00 TSH 3rd Generation 1.55 mIU/mL (0.46-4.68) 08/12/18 17:00 Urine Opiates Screen Negative (NEGATIVE) 08/12/18 16:40 Urine Methadone Screen Negative (NEGATIVE) 08/12/18 16:40 Ur Barbiturates Screen Negative (NEGATIVE) 08/12/18 16:40 Ur Phencyclidine Scrn Negative (NEGATIVE) 08/12/18 16:40 Ur Amphetamines Screen Negative (NEGATIVE) 08/12/18 16:40 U Benzodiazepines Scrn Negative (NEGATIVE) 08/12/18 16:40 U Oth Cocaine Metabols Negative (NEGATIVE) 08/12/18 16:40 U Cannabinoids Screen Negative (NEGATIVE) 08/12/18 16:40 Ur L.pneumophila Ag Negative (NEGATIVE) 08/13/18 06:45 Attending/Attestation - Attestation I have personally seen and examined this patient.: Yes I have fully participated in the care of the patient.: Yes I have reviewed all pertinent clinical information, including history, physical exam and plan: Yes Notes (Text): 08/14/18 14:32 Medical record note made by the resident after discussion with my direction and input after the patient was personally seen and examined by me. I have reviewed the chart and agree that the record accurately reflects by personal performance of the history, physical exam, data review, and medical decision-making, in the course for the patient. I have also personally directed the plan of care. 53 yo female with a PMH of Obesity, DM, depression, obesity who presents to the ED complaining of blood streaked sputum, cough, SOB, and chest tightness, found to have bilateral basal crackle and leg edema.Patient was not wheezing, has responded well to IV lasix.Echo showed grade 1 diastolic dysfunction and small loculated pericardial effusion.Case was discussed with cardiology.Patient will be discharged home on oral lasix 20 mg PO daily and will need repeat Echo in 4-6 weeks. Patient is ambulatory at the time of discharge. Possible Bronchitis, Patient is not wheezing, will be discharge home on Albuterol and steroid inhaler. Patient will also need sleep study as out patient. Management plan was discussed in detail with patient. Education was provided.
--- NOTE | 2018-08-15 09:47 | PN ---
DATE: 08/14/2018 LOCATION: The patient in room 365, bed 2. SUBJECTIVE: The patient was admitted through the emergency room due to progressive shortness of breath. The patient also has associated cough. The patient has also slight edema on the legs and she felt some tightness in the chest as well. The patient has history of depression, cocaine abuse in the past, obesity, diabetes mellitus, chronic smoker with 7 cigarettes a day. The patient's troponin was negative. The patient's CAT scan of the chest showed small pericardial effusion with emphysematous changes. The patient had echocardiogram, which showed normal-sized LV, LV ejection fraction 65%. Trace loculated anterior pericardial effusion. No signs of any tamponade. The patient's previous stress test on 09/30/2012 was reported as normal. The patient received a dose of Lasix and she improved. She was also taking Zestril 20 daily, Cozaar 50 daily. She was prescribed Nicoderm patch daily. She was advised to stop smoking and reduce weight. She even need a repeat nuclear stress test, which she is going to follow as outpatient. She was also advised to repeat echo in few weeks for followup on small pericardial effusion. The patient clinically is stable now. Michelle Gallagher MD
--- NOTE | 2018-08-15 14:46 | CON ---
DATE: 08/13/2018 HISTORY OF PRESENT ILLNESS: The patient admitted with a history that she had cough and expectoration and then she developed shortness of breath. She came to emergency room and then she went home and when she got home, she got another episode of shortness of breath, hence she came back. The patient is now feeling better. Her chest x-ray was clear. CAT scan showed very small pericardial effusion, so consultation had been requested to evaluate pericardial effusion. The patient clinically has no rub. Lungs were clear. Cardiovascular: S1 and S2. EKG showed regular sinus rhythm. Troponin is negative. TSH is normal, so we are going to do an echocardiogram to evaluate if there is any status of pericardial effusions. Clinically, does not seem to be any significant pericardial effusion. The patient sees wireless field technician and also her primary physician as outpatient. She has a history of hypertension, has been on losartan 50 daily. The patient is also getting levofloxacin 750 mg IV daily, Seroquel 50 mg at bedtime. We will follow that . In the meantime, we will continue present therapy. I will discuss with the patient if the patient wants to come to do nuclear stress test here, we can arrange as outpatient. Otherwise, she is going to follow her primary physician and the other wireless field technician to whom she was planning to see. Michelle Gallagher MD
== END 2018-08-14 13:18 | disposition home or self-care (01) | DRG 88 ==
LOC: ED 15:37 → ERH 15:58 → 3RNO 19:00
PROVIDERS: ADMIT Internal Medicine; ATTEND Internal Medicine
DX: J44.1 Chronic obstructive pulmonary disease with (acute) exacerbation (principal); I11.0 Hypertensive heart disease with heart failure; I50.9 Heart failure, unspecified; I31.3 Pericardial effusion (noninflammatory); E11.9 Type 2 diabetes mellitus without complications; F32.9 Major depressive disorder, single episode, unspecified; K44.9 Diaphragmatic hernia without obstruction or gangrene; F17.210 Nicotine dependence, cigarettes, uncomplicated; Z68.41 Body mass index [BMI] 40.0-44.9, adult; E66.01 Morbid (severe) obesity due to excess calories

== ENCOUNTER 2019-02-08 09:02 | Outpatient (CLI) | payer MEDICAID | END 2019-02-08 09:03 | disposition home or self-care (01) | LOC: CARDIO 09:02 ==